=== PATIENT | female | born 1955 ===

== ENCOUNTER 2017-01-13 11:33 | Emergency (ER) | payer BC ==
[2017-01-13 11:43] VITALS: BMI 44.1
[2017-01-13 11:47] VITALS: TEMP 97.7
[2017-01-13] MEDS ORDERED: Sodium Chloride 0.9% 1,000 ML IV STA (11:59)
--- NOTE | 2017-01-13 12:07 | ED PDOC ---
Arrival/HPI - General Chief Complaint: Headache Time Seen by Provider: 01/13/17 11:44 Historian: Patient - History of Present Illness Narrative History of Present Illness (Text): 01/13/17 11:52 Sunshine Le is a 61 year old female, whose past medical history includes vertigo , asthma, anxiety, and depression, who presents to the emergency department complaining of constant left-sided headache with associated nausea and dizziness for one week. Patient states that she has had similar symptoms before but the duration was never this long. Patient describes her headache as a pressure to the left side of her head and her dizziness as a spinning sensation. Patient denies any recent travels, sick person contact, fever, abdominal pain, or any other complaint at this time. PMD: Dr. Owen Time/Duration: 1 week Symptom Onset: Gradual Symptom Course: Unchanged Quality: Pressure Severity Level: Mild Activities at Onset: Rest Context: Home Past Medical History - Provider Review Nursing Documentation Reviewed: Yes - Reproductive Menopause: Yes - Cardiac Hx Cardiac Disorders: No - Pulmonary Hx Respiratory Disorders: Yes Hx Asthma: Yes - Gastrointestinal Hx Gastrointestinal Disorders: Yes Hx Gastroesophageal Reflux: Yes - Psychiatric Hx Psychophysiologic Disorder: Yes Hx Anxiety: Yes Hx Substance Use: No - Surgical History Hx Section: Yes Hx Cholecystectomy: Yes - Anesthesia Hx Anesthesia: Yes Hx Anesthesia Reactions: No Hx Malignant Hyperthermia: No Family/Social History - Physician Review Nursing Documentation Reviewed: Yes Family/Social History: No Known Family HX Smoking Status: Never Smoked Hx Alcohol Use: No Hx Substance Use: No Allergies/Home Meds Allergies/Adverse Reactions: Allergies iodine Allergy (Verified 01/13/17 11:49) ANAPHYLAXIS Penicillins Allergy (Verified 01/13/17 11:49) ANAPHYLAXIS Home Medications: Home Meds Medication Instructions Recorded Confirmed Aspirin [Ecotrin] 81 mg PO DAILY 01/13/17 01/13/17 Montelukast [Singulair] 10 mg PO DAILY 01/13/17 01/13/17 Pantoprazole Sodium [Protonix] 40 mg PO DAILY 01/13/17 01/13/17 Review of Systems - Physician Review All systems were reviewed & negative as marked: Yes - Review of Systems Constitutional: absent: Fevers, Night Sweats Eyes: absent: Vision Changes ENT: absent: Hearing Changes Respiratory: absent: SOB, Cough Cardiovascular: absent: Chest Pain Gastrointestinal: Nausea. absent: Abdominal Pain Musculoskeletal: absent: Back Pain, Neck Pain Skin: absent: Rash, Pruritis Neurological: Headache, Dizziness Endocrine: absent: Diaphoresis Hemo/Lymphatic: absent: Easy Bleeding Psychiatric: absent: Depression Physical Exam - Physical Exam Narrative Physical Exam (Text): Constitutional: No acute distress. Head: Normocephalic. Atraumatic. Eyes: PERRL. ENT: Moist mucous membranes. Neck: Supple. Cardiovascular: Regular rate. Chest: No tenderness. Respiratory: Clear to auscultation bilaterally. GI: Soft. Nontender. Nondistended. Back: No CVA tenderness. Musculoskeletal: No tenderness or swelling of extremities. Skin: No rash. Neurologic: Alert, no focal deficit. Vital Signs Reviewed: Yes Vital Signs Temp Pulse Resp BP Pulse Ox 01/13/17 13:48 67 16 120/75 95 01/13/17 11:46 97.7 F 66 18 138/42 L 100 Temperature: Afebrile Blood Pressure: Hypotensive Pulse: Regular Respiratory Rate: Normal Appearance: Positive for: Well-Appearing, Non-Toxic, Comfortable Pain Distress: None Mental Status: Positive for: Alert and Oriented X 3 Medical Decision Making ED Course and Treatment: 01/13/17 11:52 Impression: 61 year old female complaining of left-sided headache with associated nausea, and dizziness for one week. Plan: -- Head CT w/o contrast -- Labs -- Tylenol, Toradol, Reglan, and IV Fluids -- Reassess and disposition Progress Notes: 01/13/17 13:[address] w/o contrast: Creator : Bruce Hwang MD FINDINGS: HEMORRHAGE:No intracranial hemorrhage. BRAIN:No mass effect or edema. No atrophy or chronic microvascular ischemic changes. VENTRICLES:Unremarkable. No hydrocephalus. CALVARIUM:Unremarkable. PARANASAL SINUSES:Unremarkable as visualized. No significant inflammatory changes. MASTOID AIR CELLS:Unremarkable as visualized. No inflammatory changes. OTHER FINDINGS:None. IMPRESSION: Normal CT of the Head. 01/13/17 14:02 Patient states she feels completely better. Will discharge home, continue ibuprofen/acetaminophen, reglan, f/u PMD, return to ER for worsening pain, fever , stiff neck, vomiting, or any other problem. - Lab Interpretations Lab Results: 01/13/17 12:15 01/13/17 12:15 Lab Results 01/13/17 12:15: Sodium 139, Potassium 4.5, Chloride 100, Carbon Dioxide 29, Anion Gap 15, BUN 13, Creatinine 0.7, Est GFR ( Amer) > 60, Est GFR (Non- Af Amer) > 60, Random Glucose 88, Calcium 9.4, Total Bilirubin 0.8, AST 31, ALT 44, Alkaline Phosphatase 84, Total Protein 8.0, Albumin 4.0, Globulin 4.0, Albumin/Globulin Ratio 1.0 L 01/13/17 12:15: WBC 9.3, RBC 5.38, Hgb 14.8, Hct 43.6, MCV 81.0, MCH 27.5, MCHC 33.9, RDW 13.5, Plt Count 251, MPV 9.5, Gran % 66.8, Lymph % (Auto) 25.0, Prowers % (Auto) 6.4 H, Eos % (Auto) 1.5, Baso % (Auto) 0.3, Gran # 6.23, Lymph # 2.3, Prowers # 0.6, Eos # 0.1, Baso # 0.03 - RAD Interpretation Radiology Orders: 01/13/17 11:59 HEAD W/O CONTRAST [CT] Stat - Medication Orders Current Medication Orders: Discontinued Medications Acetaminophen (Tylenol 325mg Tab) 975 mg PO STAT STA Stop: 01/13/17 12:00 Last Admin: 01/13/17 12:31 Dose: 650 mg Comments: pt requested 650mg, made aware Sodium Chloride (Sodium Chloride 0.9%) 1,000 mls @ 999 mls/hr IV .Q1H1M STA Stop: 01/13/17 12:59 Last Admin: 01/13/17 12:31 Dose: 999 mls/hr Ketorolac Tromethamine (Toradol) 30 mg IVP STAT STA Stop: 01/13/17 12:00 Last Admin: 01/13/17 12:31 Dose: 30 mg Lorazepam (Ativan) 1 mg IVP ONCE ONE PRN Reason: Protocol Stop: 01/13/17 12:40 Last Admin: 01/13/17 12:46 Dose: 1 mg Metoclopramide HCl (Reglan) 10 mg IVP STAT STA Stop: 01/13/17 12:00 Last Admin: 01/13/17 12:31 Dose: 10 mg - Scribe Statement The provider has reviewed the documentation as recorded by the Rossana Andres Provider Scribe Attestation: All medical record entries made by the Rossana were at my direction and personally dictated by me. I have reviewed the chart and agree that the record accurately reflects my personal performance of the history, physical exam, medical decision making, and the department course for this patient. I have also personally directed, reviewed, and agree with the discharge instructions and disposition. Disposition/Present on Arrival - Present on Arrival Any Indicators Present on Arrival: No History of DVT/PE: No History of Uncontrolled Diabetes: No Urinary Catheter: No History of Decub. Ulcer: No History Surgical Site Infection Following: None - Disposition Have Diagnosis and Disposition been Completed?: Yes Diagnosis: Migraine Disposition: HOME/ ROUTINE Disposition Time: 13:25 Patient Plan: Discharge Patient Problems: Current Active Problems Problem Status Onset Migraine Acute Condition: STABLE Discharge Instructions (ExitCare): Migraine Headache (ED) Prescriptions: Metoclopramide HCl [Reglan] 10 mg PO Q8H #6 tablet Referrals: Tiago Owen MD [Primary Care Provider] - Follow up with primary
[2017-01-13 12:21] LABS: ADD MANUAL DIFF? NO
[2017-01-13 12:24] LABS: BASO # 0.03 K/mm3 (0.0-2.0); BASO % 0.3 % (0.0-3.0); EOS # 0.1 (0.0-0.7); EOS % 1.5 % (1.5-5.0); GRAN # 6.23 (1.4-6.5); GRAN % 66.8 % (50.0-68.0); HEMATOCRIT 43.6 % (36.0-48.0); LYMPH # 2.3 (1.2-3.4); MEAN CORPUSCULAR HEMOGLOBIN 27.5 pg (25.0-35.0); MEAN CORPUSCULAR HGB CONC 33.9 g/dl (31.0-37.0); MEAN PLATELET VOLUME 9.5 fl (7.0-11.0); MONO # 0.6 (0.1-0.6); MONO % 6.4 % (1.0-6.0); PLATELET COUNT 251 10^3/uL (120.0-450.0); RED CELL DISTRIBUTION WIDTH 13.5 % (11.5-14.5); WHITE BLOOD COUNT 9.3 10^3/ul (4.5-11.0)
[2017-01-13 12:35] LABS: ALKALINE PHOSPHATASE 84 U/L (38-133); ALT/SGPT 44 U/L (7-56); AST/SGOT 31 U/L (15-39); BILIRUBIN,TOTAL 0.8 mg/dL (0.2-1.3); BLOOD UREA NITROGEN 13 mg/dL (7-21); CALCIUM 9.4 mg/dL (8.4-10.5); CARBON DIOXIDE 29 mmol/L (21-33); CHLORIDE 100 mmol/L (98-107); GFR AFRICAN-AMERICAN > 60; GLUCOSE,RANDOM 88 mg/dL (70-110); POTASSIUM 4.5 mmol/L (3.6-5.0); SODIUM 139 mmol/L (132-148)
--- NOTE | 2017-01-13 13:16 | CT ---
PROCEDURE: CT HEAD WITHOUT CONTRAST. HISTORY: headache, nausea COMPARISON: None available. TECHNIQUE: Axial computed tomography images were obtained through the head/brain without intravenous contrast. Radiation dose: Total exam DLP = 688 mGy-cm. This CT exam was performed using one or more of the following dose reduction techniques: Automated exposure control, adjustment of the mA and/or kV according to patient size, and/or use of iterative reconstruction technique. FINDINGS: HEMORRHAGE: No intracranial hemorrhage. BRAIN: No mass effect or edema. No atrophy or chronic microvascular ischemic changes. VENTRICLES: Unremarkable. No hydrocephalus. CALVARIUM: Unremarkable. PARANASAL SINUSES: Unremarkable as visualized. No significant inflammatory changes. MASTOID AIR CELLS: Unremarkable as visualized. No inflammatory changes. OTHER FINDINGS: None. IMPRESSION: Normal CT of the Head.
[2017-01-13 13:54] VITALS: BP 120/75; PULSE 67; RESP 16; O2SAT 95
== END 2017-01-13 14:00 | disposition home or self-care (01) ==
LOC: ED 11:33 → MERGE 11:33 → ED 14:00
DX: G43.909 Migraine, unspecified, not intractable, without status migrainosus (principal)
CPT/HCPCS: 70450; 80053; 85025; 96374; 96375; 99285; J1885; J2060; J2765; J7040

== ENCOUNTER 2017-01-17 10:40 | Emergency (ER) | payer BC ==
[2017-01-17 10:41] VITALS: BMI 44.1
[2017-01-17 11:11] VITALS: BP 134/82; PULSE 64; RESP 18; TEMP 97.8; O2SAT 100
--- NOTE | 2017-01-17 11:28 | ED PDOC ---
Arrival/HPI - General Chief Complaint: ENT Problem Time Seen by Provider: 01/17/17 11:18 Historian: Patient - History of Present Illness Narrative History of Present Illness (Text): 01/17/17 11:25 This 61 yo female presents to this ED c/o sore throat x 2 days. Patient stated she has been taking Azithromycin since yesterday without relieft of symptoms. Patient denies fever, ear pain, sob, cp, abdominal pain, rash, sick contact, or recent travel. Time/Duration: Other (2 days) Context: Home Past Medical History - Provider Review Nursing Documentation Reviewed: Yes - Reproductive Menopause: Yes - Cardiac Hx Cardiac Disorders: No - Pulmonary Hx Respiratory Disorders: Yes Hx Asthma: Yes - Neurological Hx Neurological Disorder: Yes Hx Dizziness: Yes - Gastrointestinal Hx Gastrointestinal Disorders: Yes Hx Gastroesophageal Reflux: Yes - Psychiatric Hx Psychophysiologic Disorder: Yes Hx Anxiety: Yes Hx Substance Use: No - Surgical History Hx Section: Yes Hx Cholecystectomy: Yes Other/Comment: cyst removed from L arm. - Anesthesia Hx Anesthesia: Yes Hx Anesthesia Reactions: No Hx Malignant Hyperthermia: No Family/Social History - Physician Review Nursing Documentation Reviewed: Yes Family/Social History: No Known Family HX Smoking Status: Never Smoked Hx Alcohol Use: No Hx Substance Use: No Allergies/Home Meds Allergies/Adverse Reactions: Allergies acetaminophen [From Percocet] Allergy (Verified 01/17/17 11:08) ANAPHYLAXIS hydrocodone [From Vicodin] Allergy (Verified 01/17/17 11:08) ANAPHYLAXIS iodine Allergy (Verified 01/13/17 11:49) ANAPHYLAXIS oxycodone [From Percocet] Allergy (Verified 01/17/17 11:08) ANAPHYLAXIS Penicillins Allergy (Verified 01/17/17 11:08) ANAPHYLAXIS seafood Allergy (Uncoded 01/17/17 11:08) ANAPHYLAXIS Home Medications: Home Meds Medication Instructions Recorded Confirmed Montelukast [Singulair] 10 mg PO DAILY 01/13/17 01/17/17 Pantoprazole Sodium [Protonix] 40 mg PO DAILY 01/13/17 01/17/17 Azithromycin [Zithromax] 250 mg PO DAILY 01/17/17 01/17/17 Naproxen [Naprosyn] 500 mg PO DAILY 01/17/17 01/17/17 Review of Systems - Review of Systems Constitutional: Normal. absent: Fatigue, Weight Change, Fevers Eyes: Normal ENT: Sore Throat. absent: Sinus Congestion Respiratory: Normal. absent: SOB, Cough Cardiovascular: Normal. absent: Chest Pain, Palpitations Gastrointestinal: Normal. absent: Abdominal Pain, Nausea, Vomiting Genitourinary Female: Normal. absent: Dysuria, Frequency, Hematuria Musculoskeletal: Normal Skin: Normal. absent: Rash Neurological: Normal. absent: Headache, Dizziness, Focal Weakness, Gait Changes , Speech Changes, Facial Droop, Disequilibrium Endocrine: Normal Hemo/Lymphatic: Normal Psychiatric: Normal Physical Exam Vital Signs Temp Pulse Resp BP Pulse Ox 01/17/17 11:11 97.8 F 64 18 134/82 100 Temperature: Afebrile Blood Pressure: Normal Pulse: Regular Respiratory Rate: Normal Appearance: Positive for: Well-Appearing, Non-Toxic, Comfortable Pain Distress: None Mental Status: Positive for: Alert and Oriented X 3 - Systems Exam Head: Present: Atraumatic, Normocephalic Pupils: Present: PERRL Extroacular Muscles: Present: EOMI Conjunctiva: Present: Normal Mouth: Present: Moist Mucous Membranes, Normal Lips, Normal Tounge. No: Drooling Pharnyx: No: ERYTHEMA, EXUDATE, TONSILS ENLARGED, Peritonsilar Swelling, Uvular Deviation, Muffled/Hoarse Voice, Strider, Soft Palate/Uvular Edema Nose (External): Present: Atraumatic Nose (Internal): Present: Normal Inspection Neck: Present: Normal Range of Motion, Trachea Midline. No: Meningeal Signs, Lymphadenopathy Respiratory/Chest: Present: Clear to Auscultation, Good Air Exchange. No: Respiratory Distress, Accessory Muscle Use, Wheezes, Retracting, Rhonchi Cardiovascular: Present: Regular Rate and Rhythm, Normal S1, S2. No: Murmurs Abdomen: Present: Normal Bowel Sounds. No: Tenderness, Distention, Peritoneal Signs Back: Present: Normal Inspection. No: CVA Tenderness Upper Extremity: Present: Normal Inspection. No: Cyanosis, Edema Lower Extremity: Present: Normal Inspection. No: Edema Neurological: Present: GCS=15, CN II-XII Intact, Speech Normal Skin: Present: Warm, Dry, Normal Color. No: Rashes Psychiatric: Present: Alert, Oriented x 3, Normal Insight, Normal Concentration Medical Decision Making ED Course and Treatment: 01/17/17 11:28 This 61 yo female with pmh asthma, presents to this ED c/o sore throat x 2 days. She denies castaneda, sob, cough, fever, rash or sick contact. Physical exam was unremarkable. Patient is requesting for Steroid injection for her sore throat, since she has had this in the past. She is aware of risk for AVN, glaucoma, or dm. Re-evaluation Time: 11:31 Reassessment Condition: Re-examined, Improved - Medication Orders Current Medication Orders: Discontinued Medications Dexamethasone (Decadron Inj) 10 mg IM STAT STA Stop: 01/17/17 11:37 Last Admin: 01/17/17 11:50 Dose: 10 mg Lidocaine HCl (Lidocaine 2% Viscous) 15 ml PO STAT STA Stop: 01/17/17 11:38 Last Admin: 01/17/17 11:50 Dose: 15 ml Disposition/Present on Arrival - Present on Arrival Any Indicators Present on Arrival: No History of DVT/PE: No History of Uncontrolled Diabetes: No Urinary Catheter: No History of Decub. Ulcer: No History Surgical Site Infection Following: None - Disposition Have Diagnosis and Disposition been Completed?: Yes Diagnosis: Pharyngitis Disposition: HOME/ ROUTINE Disposition Time: 12:04 Patient Plan: Discharge Condition: GOOD Discharge Instructions (ExitCare): Pharyngitis (ED) Additional Instructions: Call private doctor for follow up visit in 1-2 days. Take medication as instructed. Return to emergency if symptoms worsen. Continue with home Z- pack till finished Prescriptions: Lidocaine 2% Viscous 15 ml PO QID PRN #1 bottle PRN Reason: Sore Throat Promethazine DM [Dextromethorphan/Promethazine 15 MG/5 Ml-6.25] 5 ml PO Q4H PRN #120 ml PRN Reason: Cough And Congestion
== END 2017-01-17 12:16 | disposition home or self-care (01) ==
LOC: MERGE 10:40 → ED 10:40
DX: J02.9 Acute pharyngitis, unspecified (principal)
CPT/HCPCS: 96372; 99283; J1100

== ENCOUNTER 2017-05-30 13:20 | Emergency (ER) | payer BC ==
[2017-05-30 13:20] VITALS: BMI 44.9
[2017-05-30 13:38] VITALS: PULSE 64; RESP 16; TEMP 97.9; O2SAT 95
--- NOTE | 2017-05-30 13:44 | ED PDOC ---
Arrival/HPI - General Chief Complaint: Headache Time Seen by Provider: 05/30/17 13:42 Historian: Patient - History of Present Illness Narrative History of Present Illness (Text): 05/30/17 13:43 61 y/o female, pm including TIA, allergic to narcotics/tylenol/penicillin/ contrast, c/o headache x 3 weeks. Pt. has frontal headache with the nasal congestion x 3 weeks, not been sleeping well, no change in vision, no fever or chills, no night sweat, no rash, no numbness or tingling, no urinary symptoms, no other medical or psychological complaints. Past Medical History - Provider Review Nursing Documentation Reviewed: Yes - Past History Past History: Non-Contributing - Infectious Disease Hx of Infectious Diseases: None - Tetanus Immunization Tetanus Immunization: Unknown - Reproductive Menopause: Yes - Cardiac Hx Cardiac Disorders: No - Pulmonary Hx Respiratory Disorders: Yes Hx Asthma: Yes - Neurological Hx Neurological Disorder: Yes (headache) Hx Headaches: Yes - HEENT Hx HEENT Disorder: Yes (Rx glasses) - Renal Hx Renal Disorder: No - Endocrine/Metabolic Hx Endocrine Disorders: No - Hematological/Oncological Hx Blood Transfusions: No Hx Blood Transfusion Reaction: No - Integumentary Hx Dermatological Disorder: No - Musculoskeletal/Rheumatological Hx Musculoskeletal Disorders: Yes Hx Back Pain: Yes - Gastrointestinal Hx Gastrointestinal Disorders: Yes Hx Gastroesophageal Reflux: Yes - Genitourinary/Gynecological Hx Genitourinary Disorders: No - Psychiatric Hx Psychophysiologic Disorder: Yes Hx Anxiety: Yes Hx Substance Use: No - Surgical History Hx Section: Yes (x 1) Other/Comment: Hernia Repair. Cyst removal from L axilla - Anesthesia Hx Anesthesia: Yes - Suicidal Assessment Feels Threatened In Home Enviroment: No Family/Social History - Physician Review Nursing Documentation Reviewed: Yes Family/Social History: Unknown Family HX Smoking Status: Former Smoker Hx Alcohol Use: No Hx Substance Use: No Hx Substance Use Treatment: No Allergies/Home Meds Allergies/Adverse Reactions: Allergies hydrocodone Allergy (Severe, Verified 05/30/17 13:34) ANAPHYLAXIS Iodine and Iodide Containing Produc Allergy (Severe, Verified 05/30/17 13:34) ANAPHYLAXIS oxycodone Allergy (Severe, Verified 05/30/17 13:34) ANAPHYLAXIS Penicillins Allergy (Severe, Verified 05/30/17 13:34) ANAPHYLAXIS shellfish derived Allergy (Severe, Verified 05/30/17 13:34) ANAPHYLAXIS acetaminophen [From Percocet] Allergy (Verified 05/30/17 13:34) ANAPHYLAXIS iodine Allergy (Verified 05/30/17 13:34) ANAPHYLAXIS SEAFOOD Allergy (Severe, Uncoded 05/30/17 13:34) ANAPHYLAXIS seafood Allergy (Uncoded 05/30/17 13:34) ANAPHYLAXIS Home Medications: Home Meds Medication Instructions Recorded Confirmed Pantoprazole Sodium [Protonix] 40 mg PO DAILY 01/13/17 05/30/17 Review of Systems - Review of Systems Constitutional: absent: Fatigue, Fevers Eyes: absent: Vision Changes ENT: absent: Hearing Changes Respiratory: absent: SOB, Cough Cardiovascular: absent: Chest Pain Gastrointestinal: Nausea, Vomiting. absent: Abdominal Pain, Diarrhea Musculoskeletal: absent: Arthralgias, Back Pain Neurological: Headache. absent: Dizziness, Focal Weakness, Gait Changes, Speech Changes, Facial Droop, Disequilibrium Physical Exam Vital Signs Reviewed: Yes Vital Signs Temp Pulse Resp BP Pulse Ox 05/30/17 13:35 97.9 F 64 16 124/82 95 Temperature: Afebrile Blood Pressure: Normal Pulse: Regular Respiratory Rate: Normal Appearance: Positive for: Well-Appearing, Non-Toxic, Comfortable Pain Distress: Moderate Mental Status: Positive for: Alert and Oriented X 3 - Systems Exam Head: Present: Atraumatic, Normocephalic, Other (no temporal artery tenderness, no jaw clawdication, +ttp on the lt. maxillary sinus region with no facial or periorbital swelling. ). No: Tenderness, Contusion, Swelling, Ecchymosis, Abrasion, Laceration Pupils: Present: PERRL Extroacular Muscles: Present: EOMI Conjunctiva: Present: Normal Mouth: Present: Moist Mucous Membranes Neck: Present: Normal Range of Motion, Trachea Midline. No: Meningeal Signs, MIDLINE TENDERNESS, Paraspinal Tenderness, Lymphadenopathy Respiratory/Chest: Present: Clear to Auscultation, Good Air Exchange. No: Respiratory Distress, Accessory Muscle Use Cardiovascular: Present: Regular Rate and Rhythm, Normal S1, S2. No: Murmurs Abdomen: Present: Normal Bowel Sounds. No: Tenderness, Distention, Peritoneal Signs Back: Present: Normal Inspection Upper Extremity: Present: Normal Inspection. No: Cyanosis, Edema Lower Extremity: Present: Normal Inspection. No: Edema Neurological: Present: GCS=15, CN II-XII Intact, Speech Normal, Motor Func Grossly Intact, Gait Normal, Memory Normal Skin: Present: Warm, Dry, Normal Color. No: Rashes Psychiatric: Present: Alert, Oriented x 3, Normal Insight, Normal Concentration Medical Decision Making ED Course and Treatment: 05/30/17 13:54 -labs/ua -CT head (pt. feels anxious to go to the CT head, request medication, valium 5mg IV ordered) -IVF/reglan/benadryl/valium -observe and reassess 05/30/17 16:47 -Pt. is just now going for the CT, request valium again as it worn off already, another 5mg IV ordered. 05/30/17 17:36 -Labs are non-significant -CT head show no acute findings. -xithromax ordered -Pt. feels completely relief, no focal neurological deficits, will discharge home. -case discussed with Dr. Marks, he agreed on the diagnosis/treatment and discharge plan -Discharge home with zithromax, claritin d24, flonase, motrin, stay hydrated, bed rest, follow up with your own pmd and ENT/neurologist within 2 days, return to the ER for any new or worsening signs or symptoms. - Lab Interpretations Lab Results: 05/30/17 14:30 05/30/17 14:30 Lab Results 05/30/17 14:30: WBC 6.5 D, RBC 5.32, Hgb 14.4, Hct 42.9, MCV 80.6, MCH 27.1, MCHC 33.6, RDW 13.3, Plt Count 219, MPV 9.6, Gran % 52.7, Lymph % (Auto) 37.1 H , [place] % (Auto) 7.2 H, Eos % (Auto) 2.8, Baso % (Auto) 0.2, Gran # 3.43, Lymph # 2.4, [place] # 0.5, Eos # 0.2, Baso # 0.01 05/30/17 14:30: Sodium 142, Potassium 4.4, Chloride 103, Carbon Dioxide 30, Anion Gap 13, BUN 12, Creatinine 0.7, Est GFR ( Amer) > 60, Est GFR (Non- Af Amer) > 60, Random Glucose 93, Calcium 9.4, Magnesium 2.0, Total Bilirubin 0.5, AST 25, ALT 36, Alkaline Phosphatase 85, Total Protein 7.0, Albumin 3.9, Globulin 3.1, Albumin/Globulin Ratio 1.3 I have reviewed the lab results: Yes - RAD Interpretation Radiology Orders: 05/30/17 13:46 HEAD W/O CONTRAST [CT] Stat PROCEDURE: CT HEAD WITHOUT CONTRAST. HISTORY: headache x 3 weeks COMPARISON: None available. TECHNIQUE: Axial computed tomography images were obtained through the head/brain without intravenous contrast. Radiation dose: Total exam DLP = 775.01 mGy-cm. This CT exam was performed using one or more of the following dose reduction techniques: Automated exposure control, adjustment of the mA and/or kV according to patient size, and/or use of iterative reconstruction technique. FINDINGS: HEMORRHAGE: Please note that the examination is limited due to patient motion artifact. The posterior fossa is particularly obscured. No intracranial hemorrhage identified. BRAIN: No mass effect or edema. No atrophy or chronic microvascular ischemic changes. VENTRICLES: Unremarkable. No hydrocephalus. CALVARIUM: Unremarkable. PARANASAL SINUSES: Unremarkable as visualized. No significant inflammatory changes. MASTOID AIR CELLS: Unremarkable as visualized. No inflammatory changes. OTHER FINDINGS: None. IMPRESSION: Limited examination due to patient motion. No intracranial hemorrhage, mass or evidence of acute infarct. Admissions Officer: Radiologist - Medication Orders Current Medication Orders: Discontinued Medications Diazepam (Valium) 5 mg IVP ONCE ONE PRN Reason: Protocol Stop: 05/30/17 13:47 Last Admin: 05/30/17 14:14 Dose: 5 mg IVP Administration Document 05/30/17 14:14 OCS (Rec: 05/30/17 14:14 [place] [facility] [id number] Charges for Administration # of IVP Administrations 1 Diazepam (Valium) 5 mg IVP ONCE ONE PRN Reason: Protocol Stop: 05/30/17 16:47 Last Admin: 05/30/17 16:52 Dose: 5 mg IVP Administration Document 05/30/17 16:52 HI (Rec: 05/30/17 16:52 [place] [facility] [id number][place] Charges for Administration # of IVP Administrations 1 Diphenhydramine HCl (Benadryl) 50 mg IVP STAT STA Stop: 05/30/17 13:47 Last Admin: 05/30/17 14:14 Dose: 50 mg IVP Administration Document 05/30/17 14:14 OCS (Rec: 05/30/17 14:14 O[place] [facility] [id number][place] Charges for Administration # of IVP Administrations 1 Sodium Chloride (Sodium Chloride 0.9%) 1,000 mls @ 999 mls/hr IV .Q1H1M STA Stop: 05/30/17 14:46 Last Admin: 05/30/17 14:15 Dose: 999 mls/hr eMAR Start Stop Document 05/30/17 14:15 OCS (Rec: 05/30/17 14:15 O[place] [facility] [id number][place] Intravenous Solution Start Date 05/30/17 Start Time 14:15 Metoclopramide HCl (Reglan) 10 mg IVP STAT STA Stop: 05/30/17 13:47 Last Admin: 05/30/17 14:14 Dose: 10 mg IVP Administration Document 05/30/17 14:14 OCS (Rec: 05/30/17 14:14 O[place] [facility] [id number][place] Charges for Administration # of IVP Administrations 1 - PA / STORE GROUP MANAGER / Resident Statement / has reviewed & agrees with the documentation as recorded. Disposition/Present on Arrival - Present on Arrival Any Indicators Present on Arrival: No History of DVT/PE: No History of Uncontrolled Diabetes: No Urinary Catheter: No History of Decub. Ulcer: No History Surgical Site Infection Following: None - Disposition Have Diagnosis and Disposition been Completed?: Yes Diagnosis: Migraine, Sinusitis Disposition: HOME/ ROUTINE Disposition Time: 17:38 Patient Plan: Discharge Patient Problems: Current Active Problems Problem Status Onset Migraine Acute Sinusitis Acute Condition: IMPROVED Additional Instructions: -Discharge home with zithromax, claritin d24, flonase, celebrex, stay hydrated, bed rest, follow up with your own pmd and ENT/neurologist within 2 days, return to the ER for any new or worsening signs or symptoms. Prescriptions: Azithromycin [Zithromax] 250 mg PO DAILY #4 tab Celecoxib [CeleBREX] 200 mg PO DAILY PRN #10 cap PRN Reason: Other Fluticasone Furoate [Flonase Sensimist] 1 spray NS DAILY #1 bot Loratadine/Pseudoephedrine [Claritin-D 24 Hour Tablet] 1 each PO DAILY #5 tab.er.24h Referrals: Tiago Owen MD [Primary Care Provider] - Follow up with primary Forms: [facility] (Romanian)
[2017-05-30] MEDS ORDERED: DiphenhydrAMINE 50 mg/ml Inj IVP STA (13:46)
[2017-05-30] MEDS ORDERED: Sodium Chloride 0.9% 1,000 ML IV STA (13:46)
[2017-05-30] MEDS ORDERED: diaZEpam 10 mg/2 ml Inj IVP ONE ×2 (13:46→16:46)
[2017-05-30 14:42] LABS: BASO # 0.01 K/mm3 (0.0-2.0); BASO % 0.2 % (0.0-3.0); EOS # 0.2 (0.0-0.7); EOS % 2.8 % (1.5-5.0); GRAN # 3.43 (1.4-6.5); GRAN % 52.7 % (50.0-68.0); HEMATOCRIT 42.9 % (36.0-48.0); LYMPH # 2.4 (1.2-3.4); LYMPH % 37.1 % (22.0-35.0); MEAN CELL VOLUME 80.6 fl (80.0-105.0); MEAN CORPUSCULAR HEMOGLOBIN 27.1 pg (25.0-35.0); MEAN CORPUSCULAR HGB CONC 33.6 g/dl (31.0-37.0); MEAN PLATELET VOLUME 9.6 fl (7.0-11.0); MONO # 0.5 (0.1-0.6); MONO % 7.2 % (1.0-6.0); RED CELL DISTRIBUTION WIDTH 13.3 % (11.5-14.5); WHITE BLOOD COUNT 6.5 10^3/ul (4.5-11.0)
[2017-05-30 14:52] LABS: ALB/GLOB RATIO 1.3 (1.1-1.8); ALKALINE PHOSPHATASE 85 U/L (38-126); ALT/SGPT 36 U/L (7-56); AST/SGOT 25 U/L (14-36); BILIRUBIN,TOTAL 0.5 mg/dL (0.2-1.3); BLOOD UREA NITROGEN 12 mg/dL (7-21); CALCIUM 9.4 mg/dL (8.4-10.5); CARBON DIOXIDE 30 mmol/L (21-33); CHLORIDE 103 mmol/L (98-107); GFR AFRICAN-AMERICAN > 60; GLUCOSE,RANDOM 93 mg/dL (70-110); POTASSIUM 4.4 mmol/L (3.6-5.0); SODIUM 142 mmol/L (132-148)
--- NOTE | 2017-05-30 17:13 | CT ---
PROCEDURE: CT HEAD WITHOUT CONTRAST. HISTORY: headache x 3 weeks COMPARISON: None available. TECHNIQUE: Axial computed tomography images were obtained through the head/brain without intravenous contrast. Radiation dose: Total exam DLP = 775.01 mGy-cm. This CT exam was performed using one or more of the following dose reduction techniques: Automated exposure control, adjustment of the mA and/or kV according to patient size, and/or use of iterative reconstruction technique. FINDINGS: HEMORRHAGE: Please note that the examination is limited due to patient motion artifact. The posterior fossa is particularly obscured. No intracranial hemorrhage identified. BRAIN: No mass effect or edema. No atrophy or chronic microvascular ischemic changes. VENTRICLES: Unremarkable. No hydrocephalus. CALVARIUM: Unremarkable. PARANASAL SINUSES: Unremarkable as visualized. No significant inflammatory changes. MASTOID AIR CELLS: Unremarkable as visualized. No inflammatory changes. OTHER FINDINGS: None. IMPRESSION: Limited examination due to patient motion. No intracranial hemorrhage, mass or evidence of acute infarct.
[2017-05-30 18:11] VITALS: BP 124/80
== END 2017-05-30 18:16 | disposition home or self-care (01) ==
LOC: ED 13:20
DX: G43.909 Migraine, unspecified, not intractable, without status migrainosus (principal); J32.9 Chronic sinusitis, unspecified
CPT/HCPCS: 70450; 80053; 83735; 85025; 96374; 96375; 96376; 99285; J1200; J1885; J2765; J3360; J7040

== ENCOUNTER 2017-08-29 11:25 | Observation (INO) | payer BC ==
[2017-08-29 11:29] VITALS: BMI 45.2
--- NOTE | 2017-08-29 12:22 | ED PDOC ---
Arrival/HPI - General Chief Complaint: Chest Pain Time Seen by Provider: 08/29/17 12:11 Historian: Patient - History of Present Illness Narrative History of Present Illness (Text): 08/29/17 12:10 Sunshine Le is a 62 year old female, whose past medical history includes asthma , who presents to the emergency department complaining of intermediate chest discomfort when taking deep breaths. Patient reports this began 1 week ago and decided to go to [facility] where they evaluated her and put her on antibiotics due to a fever of 101 degrees F. Patient notes she has been taking her antibiotics for three days but there has been no significant change. She also reports feeling dizziness and fatigue, along with upper back pain. She notes taking Tylenol for pain. Patient denies headache, chills cough, nausea, vomiting , diarrhea, diaphoresis, jaw pain, back pain, lower extremity pain/swelling, recent travels, or other complaints. PMD: None Time/Duration: 1 week Symptom Onset: Gradual Symptom Course: Unchanged Severity Level: 4, Mild Context: Home Past Medical History - Provider Review Nursing Documentation Reviewed: Yes - Travel History Have you recently traveled outside [place] w/in the past 3 mons?: No - Past History Past History: Non-Contributing - Infectious Disease Hx of Infectious Diseases: None - Tetanus Immunization Tetanus Immunization: Unknown - Reproductive Menopause: Yes - Cardiac Hx Cardiac Disorders: No - Pulmonary Hx Respiratory Disorders: Yes Hx Asthma: Yes - Neurological Hx Neurological Disorder: Yes (headache) Hx Headaches: Yes - HEENT Hx HEENT Disorder: Yes (Rx glasses) - Renal Hx Renal Disorder: No - Endocrine/Metabolic Hx Endocrine Disorders: No - Hematological/Oncological Hx Blood Transfusions: No Hx Blood Transfusion Reaction: No - Integumentary Hx Dermatological Disorder: No - Musculoskeletal/Rheumatological Hx Musculoskeletal Disorders: Yes Hx Back Pain: Yes - Gastrointestinal Hx Gastrointestinal Disorders: Yes Hx Gastroesophageal Reflux: Yes - Genitourinary/Gynecological Hx Genitourinary Disorders: No - Psychiatric Hx Psychophysiologic Disorder: Yes Hx Anxiety: Yes Hx Substance Use: No - Surgical History Hx Section: Yes (x 1) Other/Comment: Hernia Repair. Cyst removal from L axilla - Anesthesia Hx Anesthesia: Yes Hx Anesthesia Reactions: No Hx Malignant Hyperthermia: No - Suicidal Assessment Feels Threatened In Home Enviroment: No Family/Social History - Physician Review Nursing Documentation Reviewed: Yes Family/Social History: Unknown Family HX Smoking Status: Former Smoker Hx Alcohol Use: No Hx Substance Use: No Hx Substance Use Treatment: No Allergies/Home Meds Allergies/Adverse Reactions: Allergies hydrocodone Allergy (Severe, Verified 05/30/17 13:34) ANAPHYLAXIS Iodine and Iodide Containing Produc Allergy (Severe, Verified 05/30/17 13:34) ANAPHYLAXIS oxycodone Allergy (Severe, Verified 05/30/17 13:34) ANAPHYLAXIS Penicillins Allergy (Severe, Verified 05/30/17 13:34) ANAPHYLAXIS shellfish derived Allergy (Severe, Verified 05/30/17 13:34) ANAPHYLAXIS acetaminophen [From Percocet] Allergy (Verified 05/30/17 13:34) ANAPHYLAXIS iodine Allergy (Verified 05/30/17 13:34) ANAPHYLAXIS SEAFOOD Allergy (Severe, Uncoded 05/30/17 13:34) ANAPHYLAXIS seafood Allergy (Uncoded 05/30/17 13:34) ANAPHYLAXIS Home Medications: Home Meds Medication Instructions Recorded Confirmed Pantoprazole Sodium [Protonix] 40 mg PO DAILY 01/13/17 05/30/17 Review of Systems - Review of Systems Constitutional: Fatigue, Fevers Respiratory: SOB. absent: Cough Cardiovascular: Other (chest discomfort). absent: Chest Pain Gastrointestinal: absent: Abdominal Pain, Stool Changes, Vomiting Musculoskeletal: Back Pain Skin: absent: Rash Neurological: Dizziness. absent: Headache Endocrine: absent: Diaphoresis Hemo/Lymphatic: absent: Easy Bleeding Physical Exam Vital Signs Reviewed: Yes (WNL) Vital Signs Pulse Resp BP Pulse Ox 08/29/17 13:39 62 16 129/68 96 Temperature: Afebrile Blood Pressure: Normal Pulse: Regular Respiratory Rate: Normal Appearance: Positive for: Well-Appearing, Non-Toxic, Other (mildly uncomfortable , alert/awake, GCS = 15, oriented x 3, NAD, cooperative) Pain Distress: None Mental Status: Positive for: Alert and Oriented X 3 - Systems Exam Head: Present: Atraumatic, Normocephalic Pupils: Present: PERRL, Other (no nystagmus, no photophobia, sclera anicteric) Extroacular Muscles: Present: EOMI Conjunctiva: Present: Normal Ears: Present: Normal Mouth: Present: Moist Mucous Membranes, Normal Teeth, Other (uvula/tongue are midline, no exudate/lesions, no drooling/stridor) Pharnyx: Present: Normal Nose (External): Present: Atraumatic Neck: Present: Normal Range of Motion, Trachea Midline, Other (no nuchal rigidity, no meningeal signs, no step off, no gross deformities). No: MIDLINE TENDERNESS Respiratory/Chest: Present: Clear to Auscultation, Good Air Exchange, Tender to Palpation (reproductive tenderness ). No: Respiratory Distress, Accessory Muscle Use Cardiovascular: Present: Regular Rate and Rhythm, Normal S1, S2. No: Murmurs Abdomen: Present: Normal Bowel Sounds, Other (well nourished female, no focal tenderness, no bennett's sign, no mcburney's point tenderness, no masses/rebound/ guarding/rigidity). No: Tenderness, Distention, Peritoneal Signs Back: Present: Normal Inspection. No: Midline Tenderness, Pain with Leg Raise Upper Extremity: Present: Normal Inspection, Normal ROM, NORMAL PULSES, Neurovascularly Intact, Capillary Refill < 2s. No: Cyanosis, Edema, Tenderness , Swelling, Deformity Lower Extremity: Present: Normal Inspection, NORMAL PULSES, Normal ROM, Neurovascularly Intact, Capillary Refill < 2 s. No: Edema, Cyanosis, Tenderness , Swelling, Erythema Neurological: Present: GCS=15, CN II-XII Intact, Speech Normal Skin: Present: Warm, Dry, Normal Color. No: Rashes Psychiatric: Present: Alert, Oriented x 3, Normal Insight, Normal Concentration Medical Decision Making ED Course and Treatment: 08/29/17 Impression: 62 year old female with intermediate chest discomfort. I have considered all Differential Diagnosis regarding pt's chief medical complaints/clinical findings included but are not limited to: typical chest pain, r/o PNA, possible bronchitis, unlikely PE Plan: -- EKG -- Chest X-ray -- Labs -- Urinalysis -- Ecotrin and Toradol -- Reassess and disposition Progress Notes: 08/29/17 14:52 pt is feeling improved pt states chest pain is improved post toradol, currently 0-1/10 pain pt is made aware of her medical results, due to left chest pain, will recommend admission/Observation for chest pain r/o acs, possible bronchitis pt agrees with my recommendation pt currently does not have PCP, will consult medical service for admission 2:52pm - i spoke to Dr Jihan Valentino, epic beacon analyst PCP, made aware, agrees with admission/ obs, would like to consult Dr Chance Willis (cards) 08/29/17 14:58 Re-evaluation Time: 14:46 Reassessment Condition: Improved - Lab Interpretations Lab Results: 08/29/17 12:30 08/29/17 12:30 Lab Results 08/29/17 13:00: Influenza Typ A,B (EIA) Negative for flu a/b 08/29/17 12:30: Sodium 142, Potassium 4.6, Chloride 103, Carbon Dioxide 32, Anion Gap 10, BUN 11, Creatinine 0.6 L, Est GFR ( Amer) > 60, Est GFR ( Non-Af Amer) > 60, Random Glucose 105, Calcium 9.7, Magnesium 2.0, Total Bilirubin 0.5, AST 29, ALT 39, Alkaline Phosphatase 83, Lactate Dehydrogenase 508, Total Creatine Kinase 64, Troponin I < 0.01, Total Protein 7.3, Albumin 4.1 , Globulin 3.2, Albumin/Globulin Ratio 1.3 08/29/17 12:30: WBC 7.0, RBC 5.42, Hgb 14.7, Hct 44.4, MCV 81.9, MCH 27.1, MCHC 33.1, RDW 14.1, Plt Count 211, MPV 9.9, Gran % 53.1, Lymph % (Auto) 34.9, [place] % (Auto) 9.4 H, Eos % (Auto) 2.3, Baso % (Auto) 0.3, Gran # 3.74, Lymph # 2.5, [place] # 0.7 H, Eos # 0.2, Baso # 0.02 WNL I have reviewed the lab results: Yes Interpretation: All labs normal - RAD Interpretation Radiology Orders: 08/29/17 12:11 CHEST TWO VIEWS (PA/LAT) [RAD] Stat TECHNIQUE: Chest PA and lateral FINDINGS: LINES AND TUBES: None. LUNG AND PLEURA: The lungs are well inflated. There is linear scarring in the right lower lobe. No focal consolidation. HEART AND MEDIASTINUM: The heart is not enlarged. The hilar and mediastinal contours are within normal limits. SKELETAL STRUCTURES: The bony structures are within normal limits for the patient's age. VISUALIZED UPPER ABDOMEN: Normal. OTHER FINDINGS: None. IMPRESSION: No active pulmonary disease. Captain Assistant: Radiologist - EKG Interpretation EKG Interpretation (Text): 08/29/17 EKG: Ordered, reviewed, and independently interpreted the EKG. Rate : 80 BPM Rhythm : NSR Interpretation : LAD. No ectopy. No ST-segment elevations or depressions, no T- wave inversions, normal intervals. Borderline EKG. unchanged compare with old ekg 03/201608/29/17 14:47 Interpreted by ED Physician: Yes Type: 12 lead EKG - Medication Orders Current Medication Orders: Discontinued Medications Aspirin (Ecotrin) 81 mg PO STAT STA Stop: 08/29/17 12:12 Last Admin: 08/29/17 12:42 Dose: 81 mg Ketorolac Tromethamine (Toradol) 30 mg IVP STAT STA Stop: 08/29/17 12:14 Last Admin: 08/29/17 12:42 Dose: 30 mg MAR Pain Assessment Document 08/29/17 12:42 [place] (Rec: 08/29/17 12:43 [facility] [id number] Pain Reassessment Is this a pain reassessment? Yes Sleep Is patient sleeping during reassessment? No Presence of Pain Presence of Pain Yes Pain Scale Used Pain Scale Used Numeric Description Intensity of Pain at present 5 IVP Administration Document 08/29/17 12:42 [place] (Rec: 08/29/17 12:43 [place] [facility] [id number] Charges for Administration # of IVP Administrations 1 - Scribe Statement The provider has reviewed the documentation as recorded by the Rossana Lawson Provider Scribe Attestation: All medical record entries made by the Scribe were at my direction and personally dictated by me. I have reviewed the chart and agree that the record accurately reflects my personal performance of the history, physical exam, medical decision making, and the department course for this patient. I have also personally directed, reviewed, and agree with the discharge instructions and disposition. Disposition/Present on Arrival - Present on Arrival Any Indicators Present on Arrival: No History of DVT/PE: No History of Uncontrolled Diabetes: No Urinary Catheter: No History of Decub. Ulcer: No History Surgical Site Infection Following: None - Disposition Have Diagnosis and Disposition been Completed?: Yes Diagnosis: Chest pain with low risk for cardiac etiology, Bronchitis Disposition: HOSPITALIZED Disposition Time: 14:50 Patient Plan: Admission, Observation Condition: STABLE Discharge Instructions (ExitCare): Chest Pain (ED) Forms: [employer] (Lithuanian)
[2017-08-29 13:12] LABS: BASO # 0.02 K/mm3 (0.0-2.0); BASO % 0.3 % (0.0-3.0); EOS # 0.2 (0.0-0.7); EOS % 2.3 % (1.5-5.0); GRAN # 3.74 (1.4-6.5); GRAN % 53.1 % (50.0-68.0); HEMOGLOBIN 14.7 g/dL (12.0-16.0); LYMPH # 2.5 (1.2-3.4); LYMPH % 34.9 % (22.0-35.0); MEAN CELL VOLUME 81.9 fl (80.0-105.0); MEAN CORPUSCULAR HEMOGLOBIN 27.1 pg (25.0-35.0); MEAN CORPUSCULAR HGB CONC 33.1 g/dl (31.0-37.0); MEAN PLATELET VOLUME 9.9 fl (7.0-11.0); MONO # 0.7 (0.1-0.6); MONO % 9.4 % (1.0-6.0); RBC 5.42 10^6/uL (3.5-6.1); RED CELL DISTRIBUTION WIDTH 14.1 % (11.5-14.5)
[2017-08-29 13:19] LABS: ALB/GLOB RATIO 1.3 (1.1-1.8); ALBUMIN 4.1 g/dL (3.0-4.8); ALT/SGPT 39 U/L (7-56); AST/SGOT 29 U/L (14-36); BLOOD UREA NITROGEN 11 mg/dL (7-21); CALCIUM 9.7 mg/dL (8.4-10.5); GFR AFRICAN-AMERICAN > 60; GFR NON-AFRICAN AMERICAN > 60
[2017-08-29 13:30] LABS: TROPONIN I < 0.01 ng/mL
--- NOTE | 2017-08-29 13:48 | RAD ---
HISTORY: COMPARISON: 04/26/2016 TECHNIQUE: Chest PA and lateral FINDINGS: LINES AND TUBES: None. LUNG AND PLEURA: The lungs are well inflated. There is linear scarring in the right lower lobe. No focal consolidation. HEART AND MEDIASTINUM: The heart is not enlarged. The hilar and mediastinal contours are within normal limits. SKELETAL STRUCTURES: The bony structures are within normal limits for the patient's age. VISUALIZED UPPER ABDOMEN: Normal. OTHER FINDINGS: None. IMPRESSION: No active pulmonary disease.
--- NOTE | 2017-08-29 17:38 | CARD ---
APPROVED REPORT EKG Measurement Heart [id number] <Conclusion> Normal sinus rhythm Normal ECG
--- NOTE | 2017-08-30 | HP ---
HISTORY OF PRESENT ILLNESS: I was called on to the Emergency Room to see her. She is a 62-year-old female who presents with intermediate chest discomfort when taking deep breaths. It began about a week ago and she was in [place]. She was on antibiotics with 101 fever and feeling as she is having chest pain. I will put her on for observation. She has a history of menopause, asthma, headaches, she wears glasses, back pains, gastroesophageal reflux, anxiety disorder, , hernia repair, cyst removed from the left axilla. FAMILY HISTORY: No known family history. SOCIAL HISTORY: Former smoker, no alcohol, no drugs. ALLERGIES: ALLERGIC TO HYDROCODONE, IODINE, OXYCODONE, PENICILLIN, SHELLFISH, ACETAMINOPHEN, TYLENOL, IODINE, SEAD FOOD, SEA FOOD ALLERGY. MEDICATIONS: She takes at home is Protonix, Zithromax, Flonase, Claritin. REVIEW OF SYSTEMS: No acute vision or hearing changes. She is tired with fevers. She has shortness of breath. No cough. She has chest discomfort and pain. No abdominal pain or any stool changes. No nausea, vomiting, constipation, or diarrhea. Back pain is chronic. No apparent skin rashes or ulcers. She has been little bit dizzy but no headache. No sweating. No easy bleeding. PHYSICAL EXAMINATION VITAL SIGNS: She has 62 pulse, 16 respiratory rate, 129/68 blood pressure, 96% O2 sat with 99 temperature. GENERAL: Well appearing, nontoxic at this time. Alert and oriented x3. HEENT: Head is atraumatic and normocephalic. Pupils are equal and reactive to light. Extraocular muscles are intact. Throat is mildly red. NECK: Supple. CHEST: She has coughing and some congestion. No palpitations chest pain. SKIN: Absence of rash. There is dizziness. No headache. LUNGS: Clear to auscultation bilaterally. Throat is red. HEART: Regular rate. Normal S1, S2. ABDOMEN: Soft, nontender. Positive bowel sounds. No guarding. No rebound. EXTREMITIES: Have no edema. GCS is 15. Cranial nerves II through XII grossly intact. SKIN: Warm and dry. Thyroid is midline. No palpable appreciable lymphadenopathy. LABORATORY DATA: She has 142 sodium, potassium 4.6, BUN 11, creatinine 0.64. GFR is greater than 62. Sugar is 105. Calcium is 9.7. Magnesium is 2. Total bilirubin is 0.5. AST is 29, ALT is 39, alk phos is 83. Lactate dehydrogenase is 508. Total creatine kinase is 64. Troponin I is less than 0.01. Total protein is 7.3. Albumin is 4.1. Globulin is 3.2. White count 7, hemoglobin 14.7, hematocrit 44.4, platelets of 211. Negative for flu. Chest x-ray is clear. She will have a consult for cardiopulmonary, checking troponins, she will be on azithromycin, Protonix, Flonase and Ecotrin. We will check her labs tomorrowand hopefully she will be on observation and we will get her out tomorrow if her troponin's are negative. IMPRESSION: He is here for shortness of breath and chest pain. Renny Valentino DO MTDD
[2017-08-30 00:53] VITALS: RESP 18
[2017-08-30] MEDS ORDERED: Pneumococcal 23-Valent Vaccine IM ONE (00:53)
[2017-08-30 07:24] LABS: HEMOGLOBIN 15.2 g/dL (12.0-16.0); MEAN CELL VOLUME 80.8 fl (80.0-105.0); MEAN CORPUSCULAR HEMOGLOBIN 27.3 pg (25.0-35.0); MEAN CORPUSCULAR HGB CONC 33.9 g/dl (31.0-37.0); MEAN PLATELET VOLUME 9.7 fl (7.0-11.0); RBC 5.56 10^6/uL (3.5-6.1); WHITE BLOOD COUNT 7.5 10^3/ul (4.5-11.0)
[2017-08-30] MEDS ORDERED: Albuterol-Ipratrop 3 mg / 0.5 (3 ml) UD IH PRN (07:27)
[2017-08-30 07:36] LABS: ALB/GLOB RATIO 1.1 (1.1-1.8); ALT/SGPT 39 U/L (7-56); AST/SGOT 26 U/L (14-36); BLOOD UREA NITROGEN 11 mg/dL (7-21); CALCIUM 9.4 mg/dL (8.4-10.5); GFR AFRICAN-AMERICAN > 60; GFR NON-AFRICAN AMERICAN > 60
[2017-08-30] MEDS ORDERED: Budesonide 0.5 mg/2 ml Inhal Susp UD IH SCH (08:00)
[2017-08-30] MEDS: Albuterol-Ipratrop 3 mg / 0.5 (3 ml) UD IH SCH ×2 (08:01→13:45)
--- NOTE | 2017-08-30 08:13 | CON ---
DATE: 08/30/2017 PULMONARY CONSULTATION REASON FOR CONSULTATION: Asthma. REFERRING PHYSICIAN: Renny Valentino DO HISTORY OF PRESENT ILLNESS: The patient is a 62-year-old female, with past medical history significant for asthma and obesity, who presents to with main complaint of intermittent left-sided chest pain for the past week. The patient also complains of mild dyspnea on exertion for the past week. The patient is not short of breath at rest. The patient also denies cough or sputum production. There is no history of coughing up of blood. The patient does state to increasing chest discomfort when taking deep breaths or twisting. The patient did seek medical attention in a hospital --in [place]-- approximately 1 week ago. At that time, the patient stated to having fevers and was placed on antibiotics. The fevers have now resolved. No history of chills or infectious exposure. No history of night sweats, weight loss or appetite change prior to the above events. No history of leg or calf pains. No history of syncope or diaphoresis. No history of trauma. The patient has had recent travel - back and forth to [place]. REVIEW OF SYSTEMS: No history of nausea, vomiting, or diarrhea. No acute urinary symptoms. No new neurologic complaints. Rest of the review of systems is negative. ALLERGIES: HYDROCODONE, IODINE, OXYCODONE, PENICILLIN AND SEAFOOD. SOCIAL HISTORY: Negative for tobacco and negative for alcohol. FAMILY HISTORY: No inheritable diseases. MEDICATIONS: Home medications include Mucinex, Sonia, Protonix, Flonase, Celebrex, and Zithromax. PHYSICAL EXAMINATION: GENERAL: The patient appears comfortable this morning. She is not short of breath at rest. She does state to feeling much better. VITAL SIGNS: Temperature is 98.2, pulse is 61, respirations are 18, and blood pressure is 140/79. Oxygen saturation on room air is 95% to 98%. HEENT: Normocephalic and atraumatic. NECK: No JVD. CARDIOVASCULAR: Positive S1 and S2. No S3, gallop. LUNGS: Decreased breath sounds at the bases. Minimal rhonchi. No wheezing. EXTREMITIES: No clubbing, cyanosis or edema. Calves are nontender to palpation. GASTROINTESTINAL: Abdomen is soft, nontender and nondistended. Bowel sounds are positive. SKIN: No acute rash. NEUROLOGIC: Exam is limited at the present time. PERTINENT LABORATORY DATA: Chest x-ray was done yesterday and reviewed. There is a linear scar noted at the right lower lobe. There is no focal consolidation. There is no active pulmonary disease. CBC: White count of 7.0, hemoglobin of 14.7, hematocrit of 44.0, and platelets of 211,000K. Complete metabolic profile: Creatinine of 0.6. Rest of the metabolic profiles are within normal limits. IMPRESSION 1. Mild acute bronchitis. 2. Asthma. 3. Intermittent left chest pain. 4. Obesity. PLAN: The patient presents to with main complaint of intermittent left-sided chest discomfort/pain for the past week. She also states to some mild dyspnea on exertion for the past week. Apparently, the patient was recently in [place], and did go to an Emergency Room down there. She was discharged on antibiotic therapy. Her fevers have now resolved. At this point in time, the patient is feeling much better overall, with a significant decrease in her left-sided chest pain/discomfort. However, given her above history of travel and obesity, I will order a D-dimer level to be done this morning. On physical exam, there is only minimal bronchospasm noted. There is no significant alveolar-arterial gradient. Oxygen saturation on room air is 95% to 98%. I will start the patient on nebulizer treatments and inhaled steroids. The patient has also been placed on nasal steroids and antibiotic therapy. Again, there are no temperatures noted. There is no leukocytosis. Cardiology evaluation with Dr. Dugan has also been ordered. Again, the patient does feel much better this morning and is clinically improved. Additional pulmonary intervention will be based on the above results, as well as the clinical status of the patient. I will discuss the above with Dr. Valentino later this morning. Thank you very much for this pulmonary consultation. Vernon Wells MD BERT
[2017-08-30] MEDS ORDERED: Pantoprazole 40 mg EC Tab PO SCH (10:00)
[2017-08-30] MEDS ORDERED: Fluticasone Nasal 50 mcg/Spray NS SCH (10:00)
--- NOTE | 2017-08-30 14:27 | NM ---
COMPARISON: Two view chest 08/29/2017 TECHNIQUE: 36.3 mCi technetium 99-m DTPA aerosol. 5.7 mCI technetium 99-m MAA administered intravenously. FINDINGS: VENTILATION COMPONENT: Normal. PERFUSION COMPONENT: Normal. IMPRESSION: Lowprobability ventilation perfusion scan for pulmonary embolism.
[2017-08-30 15:15] VITALS: BP 132/82; PULSE 79; TEMP 98.3; O2SAT 96
--- NOTE | 2017-08-30 15:41 | CON ---
DATE: 08/30/2017 CARDIOLOGY CONSULTATION HISTORY OF PRESENT ILLNESS: The patient is a 62-year-old woman who presents with shortness of breath as well as focal pleuritic like chest pain. Her symptoms are reproducible by inspiration over the left sternal area. PAST MEDICAL HISTORY: History of bronchospasm. She is a former smoker. CARDIAC RISK FACTORS: Free of diabetes mellitus and hypertension. However, she lives a sedentary life and is obese SOCIAL HISTORY: The patient currently does not smoke. REVIEW OF SYSTEMS: A 14-point review of systems was reviewed in detail. No cardiac symptomatology is noted at this time. PHYSICAL EXAMINATION: VITAL SIGNS: Blood pressure is 140/80, heart rate is in the 60s. NECK: Negative JVD. LUNGS: Without rales. HEART: S1, S2. EXTREMITIES: Without edema. The chest pain is reproducible on inspiration. EKG is within normal limits. LABORATORY DATA: Troponins are negative x3. IMPRESSION: 1. Dyspnea, likely due to bronchospasm. 2. Musculoskeletal chest pain. 3. Obesity. 4. Borderline hypertension. PLAN: Given these findings, we will discontinue telemetry today. There is no evidence for acute coronary syndrome. Given her cardiac risk factors, we will arrange for an outpatient stress test. Joshua Dugan MD
--- NOTE | 2017-08-31 01:11 | DS ---
SUBJECTIVE: I saw her sitting up in bed this morning, resting comfortably. She slept very well. She is on DuoNeb, Flonase, ocean spray, Protonix, Pulmicort, Toradol, Zithromax. PHYSICAL EXAMINATION: GENERAL: In no acute distress. VITAL SIGNS: She has 98.2 temp, 64 pulse, 140/79 blood pressure, 18 respiratory rate, and 95% O2 saturation on room air. HEENT: Head is atraumatic and normocephalic. Throat is moist. NECK: Supple. HEART: Regular rate. LUNGS: Clear to auscultation bilaterally. ABDOMEN: Soft, obese, nontender. EXTREMITIES: No edema. LABORATORY DATA: She is negative for flu. Chemistry shows 139 sodium, potassium is 4, BUN is 11, creatinine 0.6, chloride is 106, blood sugar is 116, calcium is 9.4. Total bilirubin is 0.5, AST is 26, ALT is 39, alk phos is 95. All three troponins were less than 0.01. Total protein is 7.5. The D-dimer is high at 365, little bit elevated. Ordered a V/Q scan, if it is negative she can be discharged today. White count is 7.5, hemoglobin 15.2, hematocrit 44.9, platelets 217. She was seen by Pulmonology, awaiting Cardiology. If it is okay with Cardiology and the V/Q scan is negative, she can be discharged today. She will be follow up as an outpatient in my office in 3 days and may be go for an outpatient stress test. She will see here for chest pain, noncardiac, making sure it is not pulmonary at this time. I will get a call from Renny Valentino DO BERT
== END 2017-08-30 16:25 | disposition home or self-care (01) ==
LOC: ED 11:25 → ERH 14:44 → 3RSO 17:34
PROVIDERS: ADMIT Family Medicine; ATTEND Family Medicine
DX: R07.89 Other chest pain (principal); J20.9 Acute bronchitis, unspecified; K21.9 Gastro-esophageal reflux disease without esophagitis; J45.909 Unspecified asthma, uncomplicated; F41.9 Anxiety disorder, unspecified; E66.9 Obesity, unspecified; Z68.42 Body mass index [BMI] 45.0-49.9, adult; R03.0 Elevated blood-pressure reading, without diagnosis of hypertension; Z87.891 Personal history of nicotine dependence
CPT/HCPCS: 36415; 71046; 78582; 80053; 82550; 83615; 83735; 84484; 85025; 85027; 85378; 87804; 93005; 94640; 94760; 96374; 99284; G0378; J1885

== ENCOUNTER 2018-01-08 13:43 | Emergency (ER) | payer BC ==
[2018-01-08 14:40] VITALS: BMI 44.1
--- NOTE | 2018-01-08 14:51 | ED PDOC ---
Arrival/HPI - General Chief Complaint: Headache Time Seen by Provider: 01/08/18 14:50 Historian: Patient - History of Present Illness Narrative History of Present Illness (Text): 01/08/18 14:51 This 62 yo female with pmh migraines, and asthma, presents to this ED c/o COUGHLIN x 2 weeks. Patient stated she has been taking Tylenol for COUGHLIN with mild improvement of symptoms. Patient noted intermittent nausea, and photophobia. Denies fever, stiff neck, diplopia, dysarthria, weakness, paresthesias, dizziness, or abnormal gait. Time/Duration: Other (2 weeks) Context: Home Past Medical History - Provider Review Nursing Documentation Reviewed: Yes - Past History Past History: Non-Contributing - Infectious Disease Hx of Infectious Diseases: None - Tetanus Immunization Tetanus Immunization: Unknown - Reproductive Menopause: Yes - Cardiac Hx Cardiac Arrhythmia: Yes Hx Pacemaker: No - Pulmonary Hx Asthma: Yes Hx Bronchitis: Yes Hx Pneumonia: Yes - Neurological Hx Neurological Disorder: Yes (headache) Hx Dizziness: Yes - HEENT Hx HEENT Disorder: Yes (Rx glasses) - Renal Hx Renal Disorder: No - Endocrine/Metabolic Hx Endocrine Disorders: No - Hematological/Oncological Hx Blood Disorders: No - Integumentary Hx Dermatological Disorder: No - Musculoskeletal/Rheumatological Hx Falls: Yes - Gastrointestinal Hx Gastrointestinal Disorders: Yes Hx Gastroesophageal Reflux: Yes - Genitourinary/Gynecological Hx Genitourinary Disorders: Yes Hx Urinary Tract Infection: Yes - Psychiatric Hx Anxiety: Yes Hx Depression: Yes Hx Substance Use: No - Surgical History Hx Cholecystectomy: Yes - Anesthesia Hx Anesthesia: Yes Hx Anesthesia Reactions: No Hx Malignant Hyperthermia: No - Suicidal Assessment Feels Threatened In Home Enviroment: No Family/Social History - Physician Review Nursing Documentation Reviewed: Yes Family/Social History: Other (noncontributory) Smoking Status: Former Smoker Hx Alcohol Use: No Hx Substance Use: No Hx Substance Use Treatment: No Allergies/Home Meds Allergies/Adverse Reactions: Allergies hydrocodone Allergy (Severe, Verified 01/08/18 14:48) ANAPHYLAXIS Iodine and Iodide Containing Produc Allergy (Severe, Verified 01/08/18 14:48) ANAPHYLAXIS oxycodone Allergy (Severe, Verified 01/08/18 14:48) ANAPHYLAXIS Penicillins Allergy (Severe, Verified 01/08/18 14:48) ANAPHYLAXIS shellfish derived Allergy (Severe, Verified 01/08/18 14:48) ANAPHYLAXIS iodine Allergy (Verified 01/08/18 14:48) ANAPHYLAXIS SEAFOOD Allergy (Severe, Uncoded 01/08/18 14:48) ANAPHYLAXIS seafood Allergy (Severe, Uncoded 01/08/18 14:48) ANAPHYLAXIS Home Medications: Home Meds Medication Instructions Recorded Confirmed Albuterol HFA [Ventolin HFA 90 1 inh INH PRN PRN 09/11/17 01/08/18 mcg/actuation (8 g)] Review of Systems - Review of Systems Constitutional: Normal. absent: Fatigue, Weight Change, Fevers Eyes: Photophobia. absent: Vision Changes, Eye Pain ENT: Normal. absent: Sore Throat, Rhinorrhea Respiratory: Normal. absent: SOB, Cough, Sputum, Wheezing Cardiovascular: Normal. absent: Chest Pain, Palpitations Gastrointestinal: Nausea. absent: Abdominal Pain, Vomiting Genitourinary Female: Normal. absent: Dysuria, Frequency, Hematuria Musculoskeletal: Normal Skin: Normal Neurological: Headache. absent: Dizziness, Focal Weakness, Gait Changes, Speech Changes, Facial Droop, Disequilibrium, Seizure Endocrine: Normal Hemo/Lymphatic: Normal Psychiatric: Normal Physical Exam Vital Signs Temp Pulse Resp BP Pulse Ox 01/08/18 14:43 98.4 F 62 18 145/76 97 Temperature: Afebrile Blood Pressure: Normal Pulse: Regular Respiratory Rate: Normal Appearance: Positive for: Well-Appearing, Non-Toxic, Comfortable Pain Distress: None Mental Status: Positive for: Alert and Oriented X 3 - Systems Exam Head: Present: Atraumatic, Normocephalic Pupils: Present: PERRL Extroacular Muscles: Present: EOMI Conjunctiva: Present: Normal Mouth: Present: Moist Mucous Membranes Neck: Present: Normal Range of Motion Respiratory/Chest: Present: Clear to Auscultation, Good Air Exchange. No: Respiratory Distress, Accessory Muscle Use Cardiovascular: Present: Regular Rate and Rhythm, Normal S1, S2. No: Murmurs Abdomen: No: Tenderness, Distention, Peritoneal Signs Back: Present: Normal Inspection. No: CVA Tenderness Upper Extremity: Present: Normal Inspection, Normal ROM. No: Cyanosis, Edema Lower Extremity: Present: Normal Inspection, Normal ROM. No: Edema Neurological: Present: GCS=15, CN II-XII Intact, Speech Normal Skin: Present: Warm, Dry, Normal Color. No: Rashes Psychiatric: Present: Alert, Oriented x 3, Normal Insight, Normal Concentration Medical Decision Making ED Course and Treatment: 01/08/18 17:56 Re-evaluation. Patient feels better. Discussed results and plan with patient who expresses understanding. All questions answered and there is agreement with the plan to discharge home with instructions. Patient stable for discharge. Return if symptoms persist or worsen. Re-evaluation Time: 17:56 Reassessment Condition: Re-examined, Improved - Medication Orders Current Medication Orders: Discontinued Medications Diphenhydramine HCl (Benadryl) 50 mg IVP STAT STA Stop: 01/08/18 15:02 Last Admin: 01/08/18 16:12 Dose: 50 mg IVP Administration Document 01/08/18 16:12 IT (Rec: 01/08/18 16:12 IT [id number]) Charges for Administration # of IVP Administrations 1 Sodium Chloride (Sodium Chloride 0.9%) 1,000 mls @ 999 mls/hr IV .Q1H1M STA Stop: 01/08/18 16:01 Last Admin: 01/08/18 16:13 Dose: 999 mls/hr eMAR Start Stop Document 01/08/18 16:13 IT (Rec: 01/08/18 16:13 IT [id number]) Intravenous Solution Start Date 01/08/18 Start Time 16:13 End Date 01/08/18 Ketorolac Tromethamine (Toradol) 15 mg IVP STAT STA Stop: 01/08/18 15:03 Last Admin: 01/08/18 16:12 Dose: 15 mg MAR Pain Assessment Document 01/08/18 16:12 IT (Rec: 01/08/18 16:12 IT [id number]) Pain Reassessment Is this a pain reassessment? No Sleep Is patient sleeping during reassessment? No Presence of Pain Presence of Pain Yes Pain Scale Used Pain Scale Used Numeric IVP Administration Document 01/08/18 16:12 IT (Rec: 01/08/18 16:12 IT [id number]) Charges for Administration # of IVP Administrations 1 Metoclopramide HCl (Reglan) 10 mg IVP STAT STA Stop: 01/08/18 15:02 Last Admin: 01/08/18 16:12 Dose: 10 mg IVP Administration Document 01/08/18 16:12 IT (Rec: 01/08/18 16:13 [id number]) Charges for Administration # of IVP Administrations 1 Disposition/Present on Arrival - Present on Arrival Any Indicators Present on Arrival: No History of DVT/PE: No History of Uncontrolled Diabetes: No Urinary Catheter: No History of Decub. Ulcer: No History Surgical Site Infection Following: None - Disposition Have Diagnosis and Disposition been Completed?: Yes Diagnosis: Headache Disposition: HOME/ ROUTINE Disposition Time: 17:57 Patient Plan: Discharge Condition: GOOD Discharge Instructions (ExitCare): Headache, Adult (DC) Additional Instructions: Call private doctor and neurologist for revaluation in 1-2 days. Take medication as instructed with food. Return to emergency if symptoms returns Prescriptions: Acetaminophen/Butalbital/Caf [Fioricet] 1 tab PO Q4H PRN #12 tab PRN Reason: Headache Famotidine [Pepcid] 40 mg PO DAILY #10 tablet Naproxen 500 mg PO BID PRN #14 tab PRN Reason: Pain, Severe (8-10) Referrals: PCP,NO [Primary Care Provider] - Follow up with primary Lisa Pillai MD [Staff Provider] - Follow up with primary Forms: [facility] ([employer]), WORK NOTE
[2018-01-08] MEDS ORDERED: Sodium Chloride 0.9% 1,000 ML IV STA (15:01)
[2018-01-08] MEDS ORDERED: DiphenhydrAMINE 50 mg/ml Inj IVP STA (15:01)
[2018-01-08 18:19] VITALS: BP 122/56; PULSE 80; RESP 16; TEMP 98; O2SAT 99
== END 2018-01-08 18:25 | disposition home or self-care (01) ==
LOC: ED 13:43
DX: R51 Headache (principal); Z87.891 Personal history of nicotine dependence
CPT/HCPCS: 96374; 96375; 99285; J1200; J1885; J2765; J7040

== ENCOUNTER 2018-01-27 14:36 | Emergency (ER) | payer BC ==
[2018-01-27 14:37] VITALS: BMI 44.1
[2018-01-27 14:55] VITALS: TEMP 99.6
[2018-01-27 14:57] VITALS: RESP 18
[2018-01-27] MEDS ORDERED: Albuterol-Ipratrop 3 mg / 0.5 (3 ml) UD IH STA (15:16)
--- NOTE | 2018-01-27 15:26 | ED PDOC ---
Arrival/HPI - General Chief Complaint: Cough, Cold, Congestion Time Seen by Provider: 01/27/18 15:07 Historian: Patient - History of Present Illness Narrative History of Present Illness (Text): 01/27/18 15:20 62 year old female, with no significant past medical history, who presents to the emergency department from a local urgent care facility for a referral complaining of a productive cough with fever x 2 days. Patient notes associated shortness of breath, mild chest tightness, and urinary frequency. Patient notes a temperature max of 102, recorded today. pt was given tylenol prior to Emergency department arrival; Patient also notes chills/shakes/rigors that occurred overnight. Patient arrived to the emergency department prior to taking tylenol for fever. Patient denies any nausea, vomiting, diarrhea, back pain, neck pain, headache, dizziness, or any other complaints. Patient is here for further evaluation pt denied LOC pt denied fall/trauma/sick contact, travel PCP: none Time/Duration: < week (2 days) Symptom Onset: Gradual Symptom Course: Unchanged Activities at Onset: Light Context: Home Past Medical History - Provider Review Nursing Documentation Reviewed: Yes - Travel History Have you recently traveled outside [place] w/in the past 3 mons?: No - Past History Past History: Non-Contributing - Infectious Disease Hx of Infectious Diseases: None - Tetanus Immunization Tetanus Immunization: Unknown - Reproductive Menopause: Yes Currently : No - Cardiac Hx Cardiac Arrhythmia: Yes Hx Pacemaker: No - Pulmonary Hx Asthma: Yes Hx Bronchitis: Yes Hx Pneumonia: Yes - Neurological Hx Neurological Disorder: Yes (headache) Hx Dizziness: Yes - HEENT Hx HEENT Disorder: Yes (Rx glasses) - Renal Hx Renal Disorder: No - Endocrine/Metabolic Hx Endocrine Disorders: No - Hematological/Oncological Hx Blood Disorders: No - Integumentary Hx Dermatological Disorder: No - Musculoskeletal/Rheumatological Hx Falls: Yes - Gastrointestinal Hx Gastrointestinal Disorders: Yes Hx Gastroesophageal Reflux: Yes - Genitourinary/Gynecological Hx Genitourinary Disorders: Yes Hx Urinary Tract Infection: Yes - Psychiatric Hx Anxiety: Yes Hx Depression: Yes Hx Substance Use: No - Surgical History Hx Cholecystectomy: Yes - Anesthesia Hx Anesthesia: Yes Hx Anesthesia Reactions: No Hx Malignant Hyperthermia: No - Suicidal Assessment Feels Threatened In Home Enviroment: No Family/Social History - Physician Review Nursing Documentation Reviewed: Yes Family/Social History: Unknown Family HX Smoking Status: Former Smoker Hx Alcohol Use: No Hx Substance Use: No Hx Substance Use Treatment: No Allergies/Home Meds Allergies/Adverse Reactions: Allergies hydrocodone Allergy (Severe, Verified 01/27/18 14:49) ANAPHYLAXIS Iodine and Iodide Containing Produc Allergy (Severe, Verified 01/27/18 14:49) ANAPHYLAXIS oxycodone Allergy (Severe, Verified 01/27/18 14:49) ANAPHYLAXIS Penicillins Allergy (Severe, Verified 01/27/18 14:49) ANAPHYLAXIS shellfish derived Allergy (Severe, Verified 01/27/18 14:49) ANAPHYLAXIS iodine Allergy (Verified 01/27/18 14:49) ANAPHYLAXIS SEAFOOD Allergy (Severe, Uncoded 01/27/18 14:49) ANAPHYLAXIS seafood Allergy (Severe, Uncoded 01/27/18 14:49) ANAPHYLAXIS Home Medications: Home Meds Medication Instructions Recorded Confirmed Albuterol HFA [Ventolin HFA 90 1 inh INH PRN PRN 09/11/17 01/08/18 mcg/actuation (8 g)] Review of Systems - Physician Review All systems were reviewed & negative as marked: Yes - Review of Systems Constitutional: Normal Eyes: Normal ENT: Normal Respiratory: SOB, Cough Cardiovascular: Chest Pain Gastrointestinal: Normal. absent: Abdominal Pain, Diarrhea, Nausea, Vomiting, Appetite Changes Genitourinary Female: Frequency. absent: Dysuria, Hematuria, Urine Output Changes Musculoskeletal: Normal. absent: Back Pain, Neck Pain Skin: Normal. absent: Rash Neurological: Normal. absent: Headache Endocrine: Normal Hemo/Lymphatic: Normal Psychiatric: Normal Physical Exam - Physical Exam Narrative Physical Exam (Text): 01/27/18 1510 General: alert/awake, GCS = 15, oriented x 3, resting in bed, uncomfortable, cooperative, interactive; NAD Head: NC/AT EYE: PERRLA, EOMI, sclera anicteric, no nystagmus, no photophobia; visual field intact b/l Facial: WNL Oral: uvula/tongue are midline, no exudate/lesions, no drooling/stridor, no dysphonia; intact dentitions; mild dry oral mucosa NECK: intact ROM, no midline tenderness, no nuchal rigidity, no meningeal signs ; no step off Chest: CTA b/l, no w/r/r; no tachypenia, no accessory muscle use noted; coarse breath sounds right > left Cardiac: +S1, +S2, no m/r/r, no tachycardia Abdominal: +BS, soft/nd/nt, well nourished/obese patient; no masses/rebound/ guarding/rigidity; no bennett's sign, no mcburney's point tenderness Extremities: intact ROM, strength 5/5 grossly intact in all limbs, neurovasc intact b/l; + ambulatory; reflex +2/2; no filomena's sign b/l, no pitting edema noted b/l BACK: no step off, no midline tenderness, NO crepitus, no gross deformities noted; Intact ROM SKIN: cap refill < 1 sec, no ulcerations, no petechiae, no rashes; no pallor noted NEURO: CNII-XII WNL, no facial asymmetries, no slurr speech, oriented x 3 NIH stroke scale ~ 0 Psych: normal insight, normal affect; follows command with ease Vital Signs Reviewed: Yes Vital Signs Temp Pulse Resp BP Pulse Ox 01/27/18 14:55 99.6 F 116 H 18 132/83 99 Temperature: Afebrile Blood Pressure: Normal Pulse: Tachycardic Respiratory Rate: Normal Appearance: Positive for: Well-Appearing, Non-Toxic, Uncomfortable. No: Comfortable, Ill-Appearing, Unkept Pain Distress: None Mental Status: Positive for: Alert and Oriented X 3 - Systems Exam Head: Present: Atraumatic, Normocephalic Medical Decision Making ED Course and Treatment: 01/27/18 15:27 Impression: 62 year old female who presents to the emergency department complaining of productive cough with fever x 2 days. Differential Diagnosis included but are not limited to: Pneumonia vs. rule out pulmonary pathology vs. rule out electrolyte arrangement such as new onset diabetes or possible UTI. Plan: -- VBG -- EKG -- Labs -- Magnesium -- Chest X-ray -- Duoneb -- Motrin -- Blood Culture -- Rapid Flu -- Urinalysis -- Reassess and disposition Progress Notes: 1700 pt is doing well pt is comfortable pt is not in any distress pt felt improved pt is awaiting diagnostic results 1830 vital signs are much improved pt is made aware of her medical results pt is encouraged fluids pt is instructed on 1 tsp of honey every 8hours for cough control pt will f/u as directed pt will be discharged home Re-evaluation Time: 18:30 Reassessment Condition: Improved - Lab Interpretations Lab Results: 01/27/18 16:00 01/27/18 16:00 Lab Results 01/27/18 16:30: Urine Color Yellow, Urine Appearance Clear, Urine pH 7.0, Ur Specific [place] 1.010, Urine Protein Negative, Urine Glucose (UA) Negative, Urine Ketones Negative, Urine Blood Negative, Urine Nitrate Negative, Urine Bilirubin Negative, Urine Urobilinogen 0.2, Ur Leukocyte Esterase Negative 01/27/18 16:00: Influenza Typ A,B (EIA) Negative for flu a/b 01/27/18 16:00: Serum Osmolality 284 01/27/18 16:00: Sodium 141, Chloride 103, Potassium 4.1, Carbon Dioxide 27, Anion Gap 16, BUN 8, Creatinine 0.8, Est GFR ( Amer) > 60, Est GFR (Non- Af Amer) > 60, Random Glucose 93, Calcium 9.4, Magnesium 2.0, Total Bilirubin 0.5, AST 35, ALT 44, Alkaline Phosphatase 101, NT-Pro-B Natriuret Pep 371, Total Protein 7.4, Albumin 4.1, Globulin 3.3, Albumin/Globulin Ratio 1.2 01/27/18 16:00: pO2 27 L, VBG pH 7.40, VBG pCO2 48.0, VBG HCO3 29.7 H, VBG Total CO2 31.2 H, VBG O2 Sat (Calc) 58.0, VBG Base Excess 4.0 H, VBG Potassium 4.2, Sodium 139.0, Chloride 104.0, Glucose 94, Lactate 0.9, FiO2 21.0, Venous Blood Potassium 4.2 01/27/18 16:00: WBC 6.3, RBC 5.38, Hgb 14.5, Hct 42.6, MCV 79.2 L, MCH 27.0, MCHC 34.0, RDW 13.8, Plt Count 195, MPV 9.6, Gran % 69.5 H, Lymph % (Auto) 19.6 L, [place] % (Auto) 9.6 H, Eos % (Auto) 1.1 L, Baso % (Auto) 0.2, Gran # 4.41, Lymph # (Auto) 1.2, [place] # (Auto) 0.6, Eos # (Auto) 0.1, Baso # (Auto) 0.01 I have reviewed the lab results: Yes Interpretation: All labs normal - RAD Interpretation Narrative RAD Interpretations (Text): 01/27/18 16:50 Chest X-ray reviewed, shows: LUNGS: Right lower lobe atelectasis and or infiltrate. Persistent scarring right medial lung base as well unchanged. . Suspect minimal left basilar atelectasis PLEURA: No significant pleural effusion identified. No pneumothorax apparent. CARDIOVASCULAR: Normal. OSSEOUS STRUCTURES: No significant abnormalities. VISUALIZED UPPER ABDOMEN: Normal. OTHER FINDINGS: None. IMPRESSION: Right lower lobe atelectasis and or infiltrate. Persistent scarring right medial lung base as well unchanged. . Suspect minimal left basilar atelectasis Radiology Orders: 01/27/18 15:16 CHEST TWO VIEWS (PA/LAT) [RAD] Stat Sampler Pickup: Radiologist - Medication Orders Current Medication Orders: Discontinued Medications Albuterol/Ipratropium (Duoneb 3 Mg/0.5 Mg (3 Ml) Ud) 3 ml IH STAT STA Stop: 01/27/18 15:17 Last Admin: 01/27/18 15:41 Dose: 3 ml Ceftriaxone Sodium (Rocephin 1 Gram Ivpb) 1 gm in 100 mls @ 200 mls/hr IVPB STAT STA PRN Reason: Protocol Stop: 01/27/18 17:19 Last Admin: 01/27/18 18:00 Dose: Not Given Non-Admin Reason: Patient Refused eMAR Start Stop Document 01/27/18 18:00 EQ (Rec: 01/27/18 18:01 EQ [id number]) Intravenous Solution Start Date 01/27/18 Start Time 18:01 Azithromycin (Zithromax 500mg In Ns) 500 mg in 250 mls @ 167 mls/hr IVPB STAT STA PRN Reason: Protocol Stop: 01/27/18 18:19 Last Admin: 01/27/18 18:00 Dose: 167 mls/hr eMAR Start Stop Document 01/27/18 18:00 EQ (Rec: 01/27/18 18:00 EQ [id number]) Intravenous Solution Start Date 01/27/18 Start Time 18:00 Ibuprofen (Motrin Tab) 600 mg PO STAT STA Stop: 01/27/18 15:18 Last Admin: 01/27/18 15:41 Dose: 600 mg MAR Pain/Vitals Document 01/27/18 15:41 EQ (Rec: 01/27/18 15:41 EQ [id number]) Pain Reassessment Is This A Pain ReAssessment? No Sleep Is patient sleeping during reassessment? No Presence of Pain Presence of Pain Yes - Scribe Statement The provider has reviewed the documentation as recorded by the Scribsonja Luong All medical record entries made by the Scribe were at my direction and personally dictated by me. I have reviewed the chart and agree that the record accurately reflects my personal performance of the history, physical exam, medical decision making, and the department course for this patient. I have also personally directed, reviewed, and agree with the discharge instructions and disposition. Disposition/Present on Arrival - Present on Arrival Any Indicators Present on Arrival: No History of DVT/PE: No History of Uncontrolled Diabetes: No Urinary Catheter: No History of Decub. Ulcer: No History Surgical Site Infection Following: None - Disposition Have Diagnosis and Disposition been Completed?: Yes Diagnosis: Pneumonia Disposition: HOME/ ROUTINE Disposition Time: 19:05 Patient Plan: Discharge Condition: STABLE Discharge Instructions (ExitCare): Pneumonia in Adults Print Language: NIGERIEN Additional Instructions: Make sure to see your doctor in 1-2 days DRINK PLENTY OF FLUIDS take your medications as prescribed RETURN TO ED IF worse pain, cant breath, persistent vomiting, high fever >101- 102 for hours, altered behavior, slurr speech, facial changes, focal weakness ( arm/leg or both), unable to urinate, heavy/persistent bleeding, passing out, chest pain, or other medical emergencies Prescriptions: Azithromycin [Zithromax] 250 mg PO DAILY #4 tab Ibuprofen [Motrin] 600 mg PO QID PRN #30 tab PRN Reason: Fever >100.4 F Referrals: PCP,NO [Primary Care Provider] - Follow up with primary [facility] [Outside] - Follow up with primary [facility] [Outside] - Follow up with primary [facility] [Outside] - Follow up with primary Forms: [employer] (Croatian)
[2018-01-27 16:22] LABS: BASO # 0.01 K/mm3 (0.0-2.0); BASO % 0.2 % (0.0-3.0); EOS # 0.1 (0.0-0.7); EOS % 1.1 % (1.5-5.0); GRAN # 4.41 (1.4-6.5); GRAN % 69.5 % (50.0-68.0); HEMOGLOBIN 14.5 g/dL (12.0-16.0); LYMPH # 1.2 (1.2-3.4); LYMPH % 19.6 % (22.0-35.0); MEAN CELL VOLUME 79.2 fl (80.0-105.0); MEAN PLATELET VOLUME 9.6 fl (7.0-11.0); MONO # 0.6 (0.1-0.6); MONO % 9.6 % (1.0-6.0); RBC 5.38 10^6/uL (3.5-6.1); RED CELL DISTRIBUTION WIDTH 13.8 % (11.5-14.5); WHITE BLOOD COUNT 6.3 10^3/ul (4.5-11.0)
[2018-01-27 16:28] LABS: VENOUS BLOOD GAS PO2 27 mm/Hg (30-55)
[2018-01-27 16:31] LABS: ALB/GLOB RATIO 1.2 (1.1-1.8); ALBUMIN 4.1 g/dL (3.0-4.8); ALT/SGPT 44 U/L (7-56); AST/SGOT 35 U/L (14-36); BLOOD UREA NITROGEN 8 mg/dL (7-21); CALCIUM 9.4 mg/dL (8.4-10.5); GFR AFRICAN-AMERICAN > 60; GFR NON-AFRICAN AMERICAN > 60
[2018-01-27 16:37] LABS: B-TYPE NATRIURETIC PEPTIDE 371 pg/mL (0-450)
--- NOTE | 2018-01-27 16:40 | RAD ---
HISTORY: coughing/fever COMPARISON: Comparison chest 08/29/2017 TECHNIQUE: Chest PA and lateral FINDINGS: LUNGS: Right lower lobe atelectasis and or infiltrate. Persistent scarring right medial lung base as well unchanged. . Suspect minimal left basilar atelectasis PLEURA: No significant pleural effusion identified. No pneumothorax apparent. CARDIOVASCULAR: Normal. OSSEOUS STRUCTURES: No significant abnormalities. VISUALIZED UPPER ABDOMEN: Normal. OTHER FINDINGS: None. IMPRESSION: Right lower lobe atelectasis and or infiltrate. Persistent scarring right medial lung base as well unchanged. . Suspect minimal left basilar atelectasis
[2018-01-27] MEDS ORDERED: cefTRIAXone 1 gm 1 GM/100 ML BAG IVPB STA (16:50)
[2018-01-27] MEDS ORDERED: Azithromycin 500MG/NS 250ml 500 MG/250 ML BAG IVPB STA (16:50)
[2018-01-27 16:54] LABS: URINE BILIRUBIN NEGATIVE (NEGATIVE); URINE BLOOD NEGATIVE (NEGATIVE); URINE GLUCOSE (UA) NEGATIVE (NEGATIVE); URINE LEUKOCYTE ESTERASE NEGATIVE Leu/uL (NEGATIVE); URINE PROTEIN NEGATIVE mg/dL (<30 mg/dL); URINE UROBILINOGEN 0.2 E.U./dL (<1 E.U./dL)
[2018-01-27 16:57] LABS: URINE APPEARANCE CLEAR (CLEAR); URINE COLOR YELLOW (YELLOW)
[2018-01-27 19:32] VITALS: BP 130/86; PULSE 96; O2SAT 100
== END 2018-01-27 20:08 | disposition home or self-care (01) ==
LOC: ED 14:36
DX: J18.9 Pneumonia, unspecified organism (principal); I49.9 Cardiac arrhythmia, unspecified; Z87.891 Personal history of nicotine dependence
CPT/HCPCS: 71046; 80053; 81003; 82803; 83735; 83880; 83930; 85025; 87040; 87804; 96374; 99283; J0456

== ENCOUNTER 2018-02-07 12:23 | Inpatient (IN) | payer BC ==
[2018-02-07] MEDS ORDERED: Albuterol-Ipratrop 3 mg / 0.5 (3 ml) UD IH STA (13:16)
[2018-02-07 13:24] LABS: BASO # 0.02 K/mm3 (0.0-2.0); BASO % 0.2 % (0.0-3.0); EOS # 0.2 (0.0-0.7); EOS % 1.7 % (1.5-5.0); GRAN # 6.28 (1.4-6.5); HEMOGLOBIN 14.1 g/dL (12.0-16.0); LYMPH # 2.8 (1.2-3.4); LYMPH % 27.8 % (22.0-35.0); MEAN CELL VOLUME 80.1 fl (80.0-105.0); MEAN CORPUSCULAR HEMOGLOBIN 26.5 pg (25.0-35.0); MEAN CORPUSCULAR HGB CONC 33.1 g/dl (31.0-37.0); MEAN PLATELET VOLUME 9.8 fl (7.0-11.0); MONO # 0.7 (0.1-0.6); MONO % 7.3 % (1.0-6.0); RBC 5.32 10^6/uL (3.5-6.1)
[2018-02-07 13:33] LABS: ALB/GLOB RATIO 1.2 (1.1-1.8); ALBUMIN 3.5 g/dL (3.0-4.8); ALT/SGPT 58 U/L (7-56); AST/SGOT 25 U/L (14-36); BLOOD UREA NITROGEN 14 mg/dL (7-21); CALCIUM 8.9 mg/dL (8.4-10.5); GFR AFRICAN-AMERICAN > 60; GFR NON-AFRICAN AMERICAN > 60
[2018-02-07 13:41] LABS: INR 0.99 (0.93-1.08); PARTIAL THROMBOPLASTIN TIME 27.8 Seconds (25.1-36.5); PROTHROMBIN TIME 11.3 SECONDS (9.4-12.5)
[2018-02-07 13:45] LABS: B-TYPE NATRIURETIC PEPTIDE 101 pg/mL (0-450); TROPONIN I < 0.01 ng/mL
--- NOTE | 2018-02-07 13:46 | RAD ---
HISTORY: cough, chest pain COMPARISON: 01/27/2018 FINDINGS: LUNGS: No significant appearing consolidation noted. Linear discoid like atelectasis and/or fibrosis right mid lower lung zone -similar appearing PLEURA: No significant pleural effusion identified, no pneumothorax apparent. CARDIOVASCULAR: Mild cardiomegaly. Possible mild pulmonary venous congestion). OSSEOUS STRUCTURES: Right shoulder arthrosis VISUALIZED UPPER ABDOMEN: Normal. OTHER FINDINGS: None. IMPRESSION: No significant appearing consolidation. Linear discoid like atelectasis and/or fibrosis right mid lower lung zone -similar appearing Cardiomegaly-similar. Possible mild pulmonary venous congestion - similar appearing pulmonary vasculature
[2018-02-07 16:03] LABS: URINE BILIRUBIN NEGATIVE (NEGATIVE); URINE BLOOD NEGATIVE (NEGATIVE); URINE GLUCOSE (UA) NEGATIVE (NEGATIVE); URINE LEUKOCYTE ESTERASE TRACE Leu/uL (NEGATIVE); URINE PROTEIN NEGATIVE mg/dL (<30 mg/dL); URINE UROBILINOGEN 0.2 E.U./dL (<1 E.U./dL)
[2018-02-07 16:14] LABS: URINE COLOR YELLOW (YELLOW)
[2018-02-07 16:19] LABS: URINE APPEARANCE CLEAR (CLEAR); URINE BACTERIA FEW (NEG); URINE RBC NEGATIVE /hpf (0-2)
[2018-02-07] MEDS: Albuterol-Ipratrop 3 mg / 0.5 (3 ml) UD IH SCH ×4 (16:28→20:14)
--- NOTE | 2018-02-07 16:33 | ED PDOC ---
Arrival/HPI - General Chief Complaint: Shortness Of Breath Time Seen by Provider: 02/07/18 12:25 Historian: Patient - History of Present Illness Narrative History of Present Illness (Text): 02/07/18 16:30 Patient is a 62 yo female past medical history of asthma and recent diagnosis of pneumonia, presents to the Emergency department with one week history of persistent cough with increasing shortness of breath over past day, and chest pain with coughing. She reports productive sputum. Denies pleuritic pain. Denies hemoptysis. Denies calf pain or swelling. States she was recently prescribed Levaquin after already finishing an initial course of antibiotics and symptoms have not improved. Denies fevers or chills. Time/Duration: > week Symptom Onset: Gradual Past Medical History - Past History Past History: Non-Contributing - Infectious Disease Hx of Infectious Diseases: None - Tetanus Immunization Tetanus Immunization: Unknown - Cardiac Hx Cardiac Arrhythmia: Yes Hx Pacemaker: No - Pulmonary Hx Asthma: Yes Hx Bronchitis: Yes Hx Pneumonia: Yes - Neurological Hx Neurological Disorder: Yes (headache) Hx Dizziness: Yes - HEENT Hx HEENT Disorder: Yes (Rx glasses) - Renal Hx Renal Disorder: No - Endocrine/Metabolic Hx Endocrine Disorders: No - Hematological/Oncological Hx Blood Disorders: No - Integumentary Hx Dermatological Disorder: No - Musculoskeletal/Rheumatological Hx Falls: Yes - Gastrointestinal Hx Gastrointestinal Disorders: Yes Hx Gastroesophageal Reflux: Yes - Genitourinary/Gynecological Hx Genitourinary Disorders: Yes Hx Urinary Tract Infection: Yes - Psychiatric Hx Anxiety: Yes Hx Depression: Yes Hx Substance Use: No - Surgical History Hx Cholecystectomy: Yes - Anesthesia Hx Anesthesia: Yes Hx Anesthesia Reactions: No Hx Malignant Hyperthermia: No - Suicidal Assessment Feels Threatened In Home Enviroment: No Family/Social History Family/Social History: Unknown Family HX Smoking Status: Former Smoker Hx Alcohol Use: No Hx Substance Use: No Hx Substance Use Treatment: No Allergies/Home Meds Allergies/Adverse Reactions: Allergies hydrocodone Allergy (Severe, Verified 01/27/18 14:49) ANAPHYLAXIS Iodine and Iodide Containing Produc Allergy (Severe, Verified 01/27/18 14:49) ANAPHYLAXIS oxycodone Allergy (Severe, Verified 01/27/18 14:49) ANAPHYLAXIS Penicillins Allergy (Severe, Verified 01/27/18 14:49) ANAPHYLAXIS shellfish derived Allergy (Severe, Verified 01/27/18 14:49) ANAPHYLAXIS iodine Allergy (Verified 01/27/18 14:49) ANAPHYLAXIS SEAFOOD Allergy (Severe, Uncoded 01/27/18 14:49) ANAPHYLAXIS seafood Allergy (Severe, Uncoded 01/27/18 14:49) ANAPHYLAXIS Home Medications: Home Meds Medication Instructions Recorded Confirmed Albuterol HFA [Ventolin HFA 90 1 inh INH PRN PRN 09/11/17 02/07/18 mcg/actuation (8 g)] Review of Systems - Review of Systems Constitutional: Fatigue. absent: Fevers Eyes: absent: Vision Changes ENT: Sinus Congestion. absent: Hearing Changes, Sore Throat Respiratory: SOB, Cough, Sputum, Wheezing Cardiovascular: Chest Pain, CURRY. absent: Palpitations, Edema, Calf Pain Gastrointestinal: absent: Abdominal Pain, Nausea, Vomiting Genitourinary Female: absent: Dysuria, Frequency Musculoskeletal: absent: Back Pain Skin: absent: Rash Neurological: absent: Headache, Dizziness Endocrine: absent: Polyuria Hemo/Lymphatic: absent: Easy Bleeding Psychiatric: absent: Depression Physical Exam Vital Signs Reviewed: Yes Vital Signs Temp Pulse Resp BP Pulse Ox 02/07/18 15:32 98.5 F 78 18 127/84 99 02/07/18 12:48 20 97 02/07/18 12:34 98.3 F 73 18 125/72 98 Temperature: Afebrile Pulse: Regular Respiratory Rate: Tachypneic Appearance: Positive for: Uncomfortable Pain Distress: Mild Mental Status: Positive for: Alert and Oriented X 3 - Systems Exam Head: Present: Atraumatic Pupils: Present: PERRL Extroacular Muscles: Present: EOMI Mouth: Present: Moist Mucous Membranes Pharnyx: No: ERYTHEMA Nose (Internal): Present: Normal Inspection Neck: Present: Normal Range of Motion. No: Meningeal Signs Respiratory/Chest: Present: Wheezes, Rhonchi, Tachypneic, Tender to Palpation. No: Accessory Muscle Use, Retracting Cardiovascular: Present: Regular Rate and Rhythm, Murmurs Abdomen: Present: Normal Bowel Sounds. No: Tenderness, Peritoneal Signs Back: No: CVA Tenderness Upper Extremity: No: Cyanosis, Edema Lower Extremity: No: Edema, CALF TENDERNESS Neurological: Present: Motor Func Grossly Intact, Normal Sensory Function Skin: Present: Warm Psychiatric: Present: Alert, Normal Insight, Normal Concentration Medical Decision Making ED Course and Treatment: 02/07/18 16:34 Patient's prior ER visit reviewed. Patient recently diagnosed with pneumonia, has been on antibiotics. CXR appears unchanged from previous today. Diffuse wheezing noted on exam. After multiple nebulizers and iv steroids, wheezing improved but persistent. Chest pain I feel is muscular, secondary to coughing most likely. EKG unremarkable. Troponin unremarkable. Will admit to Dr. Owen's service for failure of outpatient treatment, asthma exacerbation. - Lab Interpretations Lab Results: 02/07/18 12:52 02/07/18 12:52 Lab Results 02/07/18 12:52: Sodium 141, Potassium 4.4, Chloride 100, Carbon Dioxide 32, Anion Gap 13, BUN 14, Creatinine 0.7, Est GFR ( Amer) > 60, Est GFR (Non- Af Amer) > 60, Random Glucose 105, Calcium 8.9, Total Bilirubin 0.3, AST 25, ALT 58 H, Alkaline Phosphatase 79, Lactate Dehydrogenase 466, Total Creatine Kinase 31 L, Troponin I < 0.01, NT-Pro-B Natriuret Pep 101, Total Protein 6.4, Albumin 3.5, Globulin 2.9, Albumin/Globulin Ratio 1.2 02/07/18 12:52: PT 11.3, INR 0.99, APTT 27.8 02/07/18 12:52: WBC 10.0 D, RBC 5.32, Hgb 14.1, Hct 42.6, MCV 80.1, MCH 26.5, MCHC 33.1, RDW 14.0, Plt Count 262, MPV 9.8, Gran % 63.0, Lymph % (Auto) 27.8, [place] % (Auto) 7.3 H, Eos % (Auto) 1.7, Baso % (Auto) 0.2, Gran # 6.28, Lymph # ( Auto) 2.8, [place] # (Auto) 0.7 H, Eos # (Auto) 0.2, Baso # (Auto) 0.02 - RAD Interpretation Radiology Orders: 02/07/18 13:15 CHEST PORTABLE [RAD] Stat - EKG Interpretation EKG Interpretation (Text): 02/07/18 16:35 EKG at 12:29 normal sinus rhythm rate of [address] elevations Interpreted by ED Physician: Yes Type: 12 lead EKG - Medication Orders Current Medication Orders: Discontinued Medications Albuterol/Ipratropium (Duoneb 3 Mg/0.5 Mg (3 Ml) Ud) 3 ml IH STAT STA Stop: 02/07/18 13:17 Last Admin: 02/07/18 15:13 Dose: 3 ml Albuterol/Ipratropium (Duoneb 3 Mg/0.5 Mg (3 Ml) Ud) 3 ml IH Q15M KAN Stop: 02/07/18 16:01 Last Admin: 02/07/18 16:28 Dose: 3 ml Methylprednisolone (Solu-Medrol) 125 mg IVP STAT STA Stop: 02/07/18 13:17 Last Admin: 02/07/18 15:13 Dose: 125 mg IVP Administration Document 02/07/18 15:13 [email or web address] (Rec: 02/07/18 15:13 [email or web address] [id number]) Charges for Administration # of IVP Administrations 1 Disposition/Present on Arrival - Present on Arrival Any Indicators Present on Arrival: No History of DVT/PE: No History of Uncontrolled Diabetes: No Urinary Catheter: No History of Decub. Ulcer: No History Surgical Site Infection Following: None - Disposition Have Diagnosis and Disposition been Completed?: Yes Diagnosis: Asthma exacerbation Disposition: HOSPITALIZED Disposition Time: 15:40 Patient Plan: Admission Patient Problems: Current Active Problems Problem Status Onset Asthma exacerbation Acute Condition: FAIR
--- NOTE | 2018-02-07 16:38 | CARD ---
APPROVED REPORT EKG Measurement Heart [id number] <Conclusion> Normal sinus rhythm Normal ECG
[2018-02-07] MEDS ORDERED: Apap-Butalbital-Caffeine 325-50-40mg Tab PO PRN (17:59)
[2018-02-07] MEDS ORDERED: Albuterol-Ipratrop 3 mg / 0.5 (3 ml) UD IH PRN (18:00)
[2018-02-07 18:12] VITALS: BMI 44.9
[2018-02-07] MEDS: MethylPREDNISolone 40 mg Vial IV SCH (21:11)
--- NOTE | 2018-02-07 23:52 | HP ---
HISTORY OF PRESENT ILLNESS: The patient is 62 years old, morbidly obese female who was seen in the office last week with cough, congestion, wheezing. She was given course of Levaquin and Medrol Dosepak. Apparently, her condition got worse. She was still wheezing and was coughing, having chest discomfort upon coughing. Did not have a fever. The patient was admitted in [facility] almost a month ago. At that point, she was found to have pneumonia. The patient denies any nausea. Does complain of decreased appetite. Complained of productive cough. Complained of headache and stuffy nose. PAST MEDICAL HISTORY: Significant for, 1. Asthma. 2. Morbid obesity. 3. Seasonal allergy. 4. History of gastritis. ALLERGIES: SHE IS ALLERGIC TO, 1. HYDROCODONE. 2. IODINE. 3. OXYCODONE . SOCIAL HISTORY: No history of smoking, drinking or alcohol use. Social drinks here and there on parties. FAMILY HISTORY: Not relevant. MEDICATIONS AT HOME: She is on Prevacid 30 mg daily. She takes albuterol. She was recently given Levaquin and Sonia. PHYSICAL EXAMINATION: GENERAL: She is awake, alert, oriented, communicative. VITAL SIGNS: She is afebrile, pulse 70, respirations 18, blood pressure 127/84. LUNGS: Bilateral expiratory rhonchi. HEART: S1 and S2 audible. ABDOMEN: Soft. Nontender. Obese. No hepatosplenomegaly. NEUROLOGICAL: She is awake, alert, oriented, communicative. LABORATORY EXAM: WBC is 10, hemoglobin 14, hematocrit 42, platelet of 262. PT 11.3, INR 0.99. Chemistry: Sodium 141, potassium 4.4, chloride 100, CO2 of 32, BUN 14, creatinine 0.7, blood sugar of 105, AST 25, ALT 58, alk phos 79, LDH is 466. Urinalysis is unremarkable. X-ray chest is negative. EKG shows normal sinus rhythm and x-ray chest shows linear discoid-like atelectasis. No significant consolidation. ASSESSMENT: 1. Asthma exacerbation. 2. Asthmatic bronchitis. 3. Morbid obesity. 4. Hypertension. 5. Allergic bronchitis. PLAN: The patient will be admitted. We will start her on IV steroid. Start her on nebulizer treatment. I will order for CT scan of the chest to rule out underlying pneumonia. Start her on Levaquin. We will follow up this patient in the a.m. Tiago Owen MD
[2018-02-08] MEDS: Albuterol-Ipratrop 3 mg / 0.5 (3 ml) UD IH SCH ×4 (01:40→19:54)
[2018-02-08] MEDS: MethylPREDNISolone 40 mg Vial IV SCH ×3 (05:37→21:19)
[2018-02-08] MEDS: Pantoprazole 40 mg EC Tab PO SCH (05:37)
--- NOTE | 2018-02-08 10:43 | CT ---
PROCEDURE: CT Chest without contrast HISTORY: sob COMPARISON: None. TECHNIQUE: Contiguous axial images were obtained through the chest without intravenous contrast enhancement. Sagittal and coronal reconstructions were performed. Radiation dose (DLP): 1072 mGy-cm. This CT exam was performed using one or more of the following dose reduction techniques: Automated exposure control, adjustment of the mA and/or kV according to patient size, and/or use of iterative reconstruction technique. FINDINGS: LUNGS: There is some linear atelectasis in both lower lobes. The lungs are otherwise clear MEDIASTINUM: Unremarkable thoracic aorta. No aneurysm. Normal sized heart. Main pulmonary artery unremarkable. No vascular congestion. No lymphadenopathy. PLEURA: No pleural fluid. No pneumothorax. BONES: No fracture. No destructive lesion. UPPER ABDOMEN: Grossly unremarkable. OTHER FINDINGS: None. IMPRESSION: Linear atelectasis in both lower lobes. The lungs are otherwise clear
[2018-02-08] MEDS: levoFLOXacin 750 mg in D5W 150 ML BAG IVPB SCH (10:45)
[2018-02-08] MEDS: Naproxen 550 mg Tab PO SCH ×2 (13:07→17:27)
--- NOTE | 2018-02-08 15:04 | PN ---
DATE: 02/08/2018 SUBJECTIVE: The patient is 62 years old, seen and examined, complained of chest pain that radiates toward her jaws and her arms. She states her shortness of breath and cough seem to be a little better. Denies any nausea or vomiting. OBJECTIVE: VITAL SIGNS: She is afebrile, pulse 67, respirations 19, blood pressure 120/69. LUNGS: Bilateral good airflow. No rhonchi or crackle. HEART: S1, S2 audible. ABDOMEN: Soft, nontender. No rebound, no guarding. NEUROLOGICAL: The patient is awake and alert, communicative, ambulatory. LABORATORY EXAM: Two sets of troponin are negative. Urine cultures are negative. CT scan of the chest was done that shows linear atelectasis in both lower lungs, otherwise lungs are clear. ASSESSMENT: 1. Asthma exacerbation. 2. Asthmatic bronchitis. 3. Chest pain, rule out coronary artery disease. 4. Morbid obesity. 5. History of gastritis. PLAN: I will request Dr. Guerrero to evaluate the chest pain. The patient had last stress test done in remote past. We will request Dr. Dugan since he had seen the patient in August with similar complaints. We will continue on IV steroid and nebulizer treatment for now and I will give her some antiinflammatory. Tiago Owen MD
--- NOTE | 2018-02-08 23:52 | CARD ---
APPROVED REPORT EKG Measurement Heart [id number] <Conclusion> Normal sinus rhythm Incomplete right bundle branch block Prolonged QT Abnormal ECG
[2018-02-09] MEDS: Albuterol-Ipratrop 3 mg / 0.5 (3 ml) UD IH SCH ×4 (00:59→20:35)
[2018-02-09] MEDS: Pantoprazole 40 mg EC Tab PO SCH (05:33)
[2018-02-09] MEDS: MethylPREDNISolone 40 mg Vial IV SCH ×3 (05:33→21:12)
[2018-02-09 07:19] VITALS: RESP 20
[2018-02-09] MEDS: Naproxen 550 mg Tab PO SCH ×2 (09:26→17:57)
[2018-02-09] MEDS: levoFLOXacin 750 mg in D5W 150 ML BAG IVPB SCH (09:26)
--- NOTE | 2018-02-09 15:13 | CARD ---
APPROVED REPORT EXAM: Two-dimensional and M-mode echocardiogram with Doppler and color Doppler. INDICATION Chest Pain 2D DIMENSIONS Left Atrium (2D)4.5 (1.6-4.0cm)IVSd0.9 (0.7-1.1cm) LVDd4.9 (3.9-5.9cm)PWd1.1 (0.7-1.1cm) LVDs3.0 (2.5-4.0cm)FS (%) 37.5 % LVEF (%)67.4 (>50%) M-Mode DIMENSIONS Aortic Root3.40 (2.2-3.7cm)Aortic Cusp Exc.2.00 (1.5-2.0cm) Aortic Valve AoV Peak Diaxttfc012.0cm/Lidya Peak GR.14mmHgLVOT Peak Udnpgvpo776.0cm/s LVOT VTI31.40cm Mitral Valve MV E Iduhhhzw52.0cm/sMV A Knrlsjnj603.0cm/sE/A ratio0.7 TDI Lateral E' Peak V7.80cm/sMedial E' Peak V7.02cm/sE/Lateral E'10.6 E/Medial E'11.8 Pulmonary Valve PV Peak Jlycodkg750.0cm/sPV Peak Grad.7mmHg Tricuspid Valve TR Peak Qchnxmja377ja/sRAP CGYCJLXY59iwVdMP Peak Gr.11mmHg MUMX21phSk LEFT VENTRICLE The left ventricle is normal size. There is normal left ventricular wall thickness. The left ventricular function is normal. The left ventricular ejection fraction is within the normal range. There is normal LV segmental wall motion. Transmitral Doppler flow pattern is Grade I-abnormal relaxation pattern. RIGHT VENTRICLE The right ventricle is normal size. There is normal right ventricular wall thickness. The right ventricular systolic function is normal. ATRIA The left atrium is borderline dilated. The right atrium size is normal. AORTIC VALVE The aortic valve is mildly thickened. There is trace aortic regurgitation. MITRAL VALVE The mitral valve is normal in structure. There is no mitral valve regurgitation noted. TRICUSPID VALVE The tricuspid valve is normal in structure. There is trace to mild tricuspid regurgitation. PULMONIC VALVE The pulmonary valve is normal in structure. There is trace to mild pulmonic valvular regurgitation. GREAT VESSELS The aortic root is normal in size. PERICARDIAL EFFUSION There is no pericardial effusion. <Conclusion> The left ventricle is normal size. There is normal left ventricular wall thickness. The left ventricular function is normal. The left ventricular ejection fraction is within the normal range. There is normal LV segmental wall motion. Transmitral Doppler flow pattern is Grade I-abnormal relaxation pattern.
[2018-02-09] MEDS ORDERED: MethylPREDNISolone 40 mg Vial IV SCH (22:00)
[2018-02-10] MEDS: Albuterol-Ipratrop 3 mg / 0.5 (3 ml) UD IH SCH ×3 (01:35→13:17)
[2018-02-10] MEDS: Pantoprazole 40 mg EC Tab PO SCH (05:48)
[2018-02-10] MEDS: MethylPREDNISolone 40 mg Vial IV SCH (05:48)
[2018-02-10 07:41] VITALS: BP 132/73; PULSE 72; TEMP 98; O2SAT 94
[2018-02-10] MEDS: Naproxen 550 mg Tab PO SCH (09:44)
[2018-02-10] MEDS ORDERED: levoFLOXacin 750 MG TAB PO SCH (10:00)
--- NOTE | 2018-02-10 19:43 | CON ---
DATE: 02/10/2018 CARDIOLOGY CONSULTATION HISTORY OF PRESENT ILLNESS: The patient is a 62-year-old woman who presents with an asthmatic attack. She also complains of substernal chest pain when she exerts herself. PAST MEDICAL HISTORY: The patient's past medical history is notable for history of longstanding asthma. No hypertension, no diabetes mellitus. No previous cardiac history noted. SOCIAL HISTORY: The patient does not smoke. REVIEW OF SYSTEMS: Fourteen-point review of systems is notable for her dyspnea which has been attributed to her asthma as well as occasional chest discomfort. PHYSICAL EXAMINATION: GENERAL: The patient is an obese woman, in no acute distress. VITAL SIGNS: Blood pressure is 132/73, the heart rates in the 70s. NECK: Negative JVD. LUNGS: Bilateral rhonchi with minimal expiratory wheezing. HEART: Reveals S1, S2. EXTREMITIES: Without edema. LABORATORY DATA: EKG is unremarkable. Hemoglobin is 14.1. Chemistries reveal troponins that are negative x2. Echocardiogram reveals normal LV function, no pulmonary hypertension is noted. IMPRESSION: 1. Bronchospasm. 2. Longstanding asthma. 3. Obesity. 4. Atypical chest pain. 5. No evidence for acute coronary syndrome. PLAN: Given these findings, I have discussed with the patient about her results. We will arrange for outpatient followup as well as an outpatient stress test once her bronchospasm is under control. Joshua Dugan MD
--- NOTE | 2018-02-12 09:10 | PN ---
DATE: 02/10/2018 FOLLOWUP NOTE HISTORY OF PRESENT ILLNESS: Ms. Le came to the hospital with COPD exacerbation. She completed the course of Levaquin and Medrol Dosepak relief. She is currently getting bronchodilators and antibiotics. CAT scan of the chest was done to rule out pneumonia. She has a history of gastritis, no current symptoms. History of seasonal allergies. No new complaints. PAST MEDICAL HISTORY: Asthma, morbid obesity, allergies, history of gastritis. ALLERGIES: TO HYDROCODONE, IODINE, OXYCODONE. PERSONAL HISTORY: No history of smoking. No history of drug abuse. SOCIAL HISTORY: Lives at home. FAMILY HISTORY: Noncontributory. HOME MEDICATIONS: Prevacid 30 mg, albuterol, Levaquin and Sonia. PHYSICAL EXAMINATION: GENERAL: Comfortable in bed, in no acute distress. VITAL SIGNS: Temperature 98.7, heart rate per minute, blood pressure 120/70. HEENT: Pallor positive. NECK: No lymphadenopathy. CHEST: Air entry present and equal bilaterally. No added sounds. CARDIOVASCULAR: S1 and S2 normal. No murmur. No gallop. ABDOMEN: Soft, nontender. No hepatosplenomegaly. EXTREMITIES: No edema. CENTRAL NERVOUS SYSTEM: Alert and oriented x3. No focal sensory or motor deficits. SKIN: No petechiae. No rash. LABORATORY DATA: White count 10, hemoglobin 14, hematocrit 42, platelet 262. Creatinine 0.7. ASSESSMENT: 1. Chronic obstructive pulmonary disease exacerbation. 2. Morbid obesity. 3. Allergic rhinitis. 4. Chest pain. PLAN: We will continue bronchodilators, Xanax 0.5 mg t.i.d., Levaquin currently on oral 750 daily, Solu-Medrol 40 mg every 8 hours, naproxen p.r.n., Protonix 40 mg daily. We will continue to monitor clinical course. We will do discharge planning when stable. June De La Torre MD
--- NOTE | 2018-02-12 09:21 | PN ---
DATE: 02/09/2018 SUBJECTIVE: The patient is a 62-year-old. The patient states she is doing well. States she is doing much better. Her shortness of breath and cough are better. She hade one episode of chest pain last night, but has been doing well. PHYSICAL EXAMINATION: GENERAL: She is awake and alert, able to communicate. VITAL SIGNS: The patient is afebrile, pulse 71, respirations 20, blood pressure 120/69. LUNGS: Bilateral fair airflow. No rhonchi or crackles. HEART: S1 and S2 audible. ABDOMEN: Soft, obese, nontender. No rebound. No guarding. NEUROLOGICAL: She is awake, alert, oriented, communicative. LABORATORY DATA: Her echocardiogram is unremarkable. CT scan of the chest shows basal atelectasis. ASSESSMENT: 1. Asthmatic bronchitis. 2. Pleuritic chest pain. 3. Gastritis. 4. Failed outpatient treatment. PLAN: We will continue the patient on nebulizer treatment, continue on Levaquin. We will keep her on PPI. We will cut down her steroids to 40 every 12 hours and Xanax as needed and if the patient remains stable, possible discharge in a.m. on tapering dose of steroids, she already has prescription for Levaquin. She will take Naprosyn for 2 to 3 more days until her cough subsides and I will see her as outpatient. Tiago Owen MD
== END 2018-02-10 14:25 | disposition home or self-care (01) | DRG 202 ==
LOC: ED 12:23 → ERH 15:31 → 3RNO 17:21
PROVIDERS: ADMIT Internal Medicine; ATTEND Internal Medicine
DX: J45.901 Unspecified asthma with (acute) exacerbation (principal); J18.9 Pneumonia, unspecified organism; J44.0 Chronic obstructive pulmonary disease with (acute) lower respiratory infection; J44.1 Chronic obstructive pulmonary disease with (acute) exacerbation; Z68.41 Body mass index [BMI] 40.0-44.9, adult; I10 Essential (primary) hypertension; K21.9 Gastro-esophageal reflux disease without esophagitis; K29.70 Gastritis, unspecified, without bleeding; E66.01 Morbid (severe) obesity due to excess calories; Z87.01 Personal history of pneumonia (recurrent); Z87.440 Personal history of urinary (tract) infections; Z90.49 Acquired absence of other specified parts of digestive tract; J30.2 Other seasonal allergic rhinitis; Z88.5 Allergy status to narcotic agent; Z88.8 Allergy status to other drugs, medicaments and biological substances; R07.2 Precordial pain

== ENCOUNTER 2018-08-24 19:51 | Emergency (ER) | payer BC ==
[2018-08-24 19:51] VITALS: BMI 44.9
[2018-08-24 19:56] VITALS: RESP 18
--- NOTE | 2018-08-24 20:26 | ED PDOC ---
Arrival/HPI - General Chief Complaint: Abdominal Pain Time Seen by Provider: 08/24/18 20:09 Historian: Patient - History of Present Illness Narrative History of Present Illness (Text): 08/24/18 20:19 63 year old female, whose past medical history includes TIA, asthma, anxiety and panic attacks, cholecystecomy, GERD, and allergic to iodine contrast, presents to the emergency department with epigastric pain, for 2 weeks. Patient states pain feels like burning and extreme bloating in her abdomen. Patient informs pain feels different than her normal GERD symptoms. Patient states she saw her PMD 2 weeks ago, and was prescribed pantoprazole 40mg. Patient states pain became unbearable today, and radiates to the right side of her abdomen. Patient informs having melena recently. Patient denies any smoking or drinking. Abraham neo also denies any fevers, chills, nausea, vomiting, diarrhea, dysuria, or any other complaint. Time/Duration: > week (2 weeks) Symptom Onset: Gradual Symptom Course: Unchanged Quality: Burning, Fullness Activities at Onset: Light Past Medical History - Provider Review Nursing Documentation Reviewed: Yes - Past History Past History: Non-Contributing - Infectious Disease Hx of Infectious Diseases: None - Tetanus Immunization Tetanus Immunization: Unknown - Reproductive Menopause: No - Cardiac Hx Cardiac Arrhythmia: Yes - Pulmonary Hx Asthma: Yes Hx Bronchitis: Yes Hx Pneumonia: Yes - Neurological Hx Migraine: Yes - HEENT Hx HEENT Disorder: No - Renal Hx Renal Disorder: No - Endocrine/Metabolic Hx Endocrine Disorders: No - Hematological/Oncological Hx Blood Disorders: No - Integumentary Hx Dermatological Disorder: No - Musculoskeletal/Rheumatological Hx Musculoskeletal Disorders: No Hx Falls: No - Gastrointestinal Hx Gastroesophageal Reflux: Yes - Genitourinary/Gynecological Hx Urinary Tract Infection: Yes - Psychiatric Hx Anxiety: Yes Hx Depression: Yes Hx Substance Use: No - Surgical History Hx Cholecystectomy: Yes - Anesthesia Hx Anesthesia: Yes Hx Anesthesia Reactions: No Hx Malignant Hyperthermia: No - Suicidal Assessment Feels Threatened In Home Enviroment: No Family/Social History - Physician Review Nursing Documentation Reviewed: Yes Family/Social History: No Known Family HX Smoking Status: Never Smoked Hx Alcohol Use: No Hx Substance Use: No Hx Substance Use Treatment: No Allergies/Home Meds Allergies/Adverse Reactions: Allergies hydrocodone Allergy (Severe, Verified 08/24/18 19:57) ANAPHYLAXIS Iodine and Iodide Containing Produc Allergy (Severe, Verified 08/24/18 19:57) ANAPHYLAXIS oxycodone Allergy (Severe, Verified 08/24/18 19:57) ANAPHYLAXIS Penicillins Allergy (Severe, Verified 08/24/18 19:57) ANAPHYLAXIS shellfish derived Allergy (Severe, Verified 08/24/18 19:57) ANAPHYLAXIS iodine Allergy (Verified 08/24/18 19:57) ANAPHYLAXIS SEAFOOD Allergy (Severe, Uncoded 08/24/18 19:57) ANAPHYLAXIS seafood Allergy (Severe, Uncoded 08/24/18 19:57) ANAPHYLAXIS Home Medications: Home Meds Medication Instructions Recorded Confirmed Albuterol HFA [Ventolin HFA 90 1 inh INH PRN PRN 09/11/17 08/24/18 mcg/actuation (8 g)] Pantoprazole [Protonix EC Tab] 40 mg PO DAILY 08/24/18 08/24/18 Review of Systems - Physician Review All systems were reviewed & negative as marked: Yes - Review of Systems Constitutional: absent: Fevers, Night Sweats Gastrointestinal: Abdominal Pain, Stool Changes (Black stool). absent: Constipation, Diarrhea, Nausea Genitourinary Female: absent: Dysuria Physical Exam Vital Signs Reviewed: Yes Vital Signs Temp Pulse Resp BP Pulse Ox 08/24/18 19:52 97.5 F L 73 18 127/84 97 Temperature: Afebrile Blood Pressure: Normal Pulse: Regular Respiratory Rate: Normal Appearance: Positive for: Well-Appearing, Non-Toxic, Comfortable Pain Distress: None Mental Status: Positive for: Alert and Oriented X 3 - Systems Exam Head: Present: Atraumatic, Normocephalic Pupils: Present: PERRL Extroacular Muscles: Present: EOMI Conjunctiva: Present: Normal Mouth: Present: Moist Mucous Membranes Neck: Present: Normal Range of Motion Respiratory/Chest: Present: Clear to Auscultation, Good Air Exchange. No: Respiratory Distress, Accessory Muscle Use Cardiovascular: Present: Regular Rate and Rhythm, Normal S1, S2. No: Murmurs Abdomen: Present: Tenderness (Epigastric pain). No: Distention, Peritoneal Signs Back: Present: Normal Inspection Upper Extremity: Present: Normal Inspection. No: Cyanosis, Edema Lower Extremity: Present: Normal Inspection. No: Edema Neurological: Present: GCS=15, CN II-XII Intact, Speech Normal Skin: Present: Warm, Dry, Normal Color. No: Rashes Psychiatric: Present: Alert, Oriented x 3, Normal Insight, Normal Concentration Medical Decision Making ED Course and Treatment: 08/24/18 20:29 Impression: 63 year old female presents with epigastric pain Plan: -- CT ABD& Pelvis -- EKG -- CMP, Lipase -- CBC -- Tylenol -- Ativan -- Urinalysis -- Reassess and disposition Prior Visits: Notes and results from previous visits were reviewed. Progress Notes: 08/24/18 20:31 EKG reviewed by me, shows: Normal sinus rhythm @ 68bpm No STEMI 08/24/18 21:49 CT of the abdomen and pelvis without contrast Clinical statement: Pain. Technique: Multiple axial CT images were obtained from the base of the lungs to the floor of the pelvis utilizing 5 mm axial slices without administration of contrast. Coronal and sagittal reconstructions were also obtained. Comparison: None. Findings: Chest: The visualized lung bases are clear. Abdomen: The kidneys are normal in size bilaterally. There is no evidence of hydronephrosis or nephrolithiasis. The liver, spleen, pancreas, and adrenal glands are unremarkable. The aorta demonstrates normal caliber and contour. There is no abdominal lymphadenopathy or ascites. Pelvis: The bowel is unremarkable, with no obstructive or inflammatory changes. There is diffuse diverticulosis noted involving sigmoid colon. No evidence of acute diverticulitis.The appendix is normal. The urinary bladder is within normal limits. There is no pelvic lymphadenopathy or ascites. The other pelvic structures appear unremarkable. Bones: There are no suspicious osseous abnormalities seen. Impression: No acute abdominal or pelvic pathology. 08/24/18 23:04 labs unremarkable Pt notes she does not want guaic exam: I explained need given dark stool. She notes she still does not need it Given potential +guaic, will rx as so- pt however already on PPI: protonix 40mg a day, informed pt to f/u regarding possible GI bleed, she is agreeable UA+ will rx given abd pain - RAD Interpretation Radiology Orders: 08/24/18 20:17 ABD & PELVIS W/O PO OR IV CONT [CT] Stat - Scribe Statement The provider has reviewed the documentation as recorded by the Marlinibsonja Degroot Provider Scribe Attestation: All medical record entries made by the Scribe were at my direction and personally dictated by me. I have reviewed the chart and agree that the record accurately reflects my personal performance of the history, physical exam, medical decision making, and the department course for this patient. I have also personally directed, reviewed, and agree with the discharge instructions and disposition. Disposition/Present on Arrival - Present on Arrival Any Indicators Present on Arrival: No History of DVT/PE: No History of Uncontrolled Diabetes: No Urinary Catheter: No History of Decub. Ulcer: No History Surgical Site Infection Following: None - Disposition Have Diagnosis and Disposition been Completed?: Yes Diagnosis: UTI (urinary tract infection), Dark stools Disposition: HOME/ ROUTINE Disposition Time: 23:05 Condition: GOOD Discharge Instructions (ExitCare): Urinary Tract Infections in Adults Additional Instructions: FOLLOW UP WITH YOUR PRIMARY CARD DOCTOR AND A STOMACH DOCTOR WE HAVE RECCOMENDED FOR YOU. OR ONE YOUR PRIMARY RECCOMENDS. ABBIE OLIVER, thank you for letting us take care of you today. Your provider was Christiano Marks and you were treated for ABD PAIN. The emergency medical care you received today was directed at your acute symptoms. If you were prescribed any medication, please fill it and take as directed. It may take several days for your symptoms to resolve. Return to the Emergency Department if your symptoms worsen, do not improve, or if you have any other problems. Please contact your doctor or call one of the physicians/clinics you have been referred to that are listed on the Patient Visit Information form that is included in your discharge packet. Bring any paperwork you were given at discharge with you along with any medications you are taking to your follow up visit. Our treatment cannot replace ongoing medical care by a primary care provider outside of the emergency department. Thank you for allowing the [facility] team to be part of your care today. If you had an X-Ray or CT scan: A Radiologist will review the ED reading if any change in treatment is needed we will contact you. If you had a blood, urine, or wound culture: It will take several days for the results, if any change in treatment is needed we will contact you. If you had an STI test: It will take 48 hours for the results. Please call after 1 week if you have not heard back. Prescriptions: Nitrofurantoin Macrocrystal [Nitrofurantoin] 100 mg PO BID 5 Days #10 capsule Referrals: Tiago Owen MD [Primary Care Provider] - Follow up with primary Tu Solis DO [Staff Provider] - Follow up with primary Forms: [email or web address] (Tunisian)
[2018-08-24] MEDS ORDERED: Sodium Chloride 0.9% 1,000 ML IV SCH (20:30)
[2018-08-24 20:38] LABS: BASO # 0.02 K/mm3 (0.0-2.0); BASO % 0.3 % (0.0-3.0); EOS # 0.2 (0.0-0.7); EOS % 2.1 % (1.5-5.0); GRAN # 3.92 (1.4-6.5); GRAN % 52.4 % (50.0-68.0); HEMOGLOBIN 13.9 g/dL (12.0-16.0); LYMPH # 2.7 (1.2-3.4); LYMPH % 36.6 % (22.0-35.0); MEAN CELL VOLUME 80.7 fl (80.0-105.0); MEAN CORPUSCULAR HEMOGLOBIN 26.8 pg (25.0-35.0); MEAN CORPUSCULAR HGB CONC 33.3 g/dl (31.0-37.0); MEAN PLATELET VOLUME 9.9 fl (7.0-11.0); MONO # 0.6 (0.1-0.6); MONO % 8.6 % (1.0-6.0); RBC 5.18 10^6/uL (3.5-6.1); RED CELL DISTRIBUTION WIDTH 13.6 % (11.5-14.5); WHITE BLOOD COUNT 7.5 10^3/uL (4.5-11.0)
[2018-08-24 20:53] LABS: ALB/GLOB RATIO 1.2 (1.1-1.8); ALBUMIN 3.8 g/dL (3.0-4.8); ALT/SGPT 29 U/L (7-56); AST/SGOT 24 U/L (14-36); BLOOD UREA NITROGEN 11 mg/dL (7-21); CALCIUM 9.3 mg/dL (8.4-10.5); GFR NON-AFRICAN AMERICAN > 60; LIPASE 24 U/L (23-300)
[2018-08-24 22:16] LABS: URINE BILIRUBIN NEGATIVE (NEGATIVE); URINE BLOOD NEGATIVE (NEGATIVE); URINE GLUCOSE (UA) NEGATIVE (NEGATIVE); URINE LEUKOCYTE ESTERASE SMALL Leu/uL (NEGATIVE); URINE PROTEIN NEGATIVE mg/dL (<30 mg/dL); URINE UROBILINOGEN 0.2 E.U./dL (<1 E.U./dL)
[2018-08-24 22:19] LABS: URINE APPEARANCE CLEAR (CLEAR)
[2018-08-24 22:23] VITALS: BP 125/70; PULSE 68; O2SAT 98
[2018-08-24 22:26] VITALS: TEMP 97.7
--- NOTE | 2018-08-25 11:50 | CT ---
Date of service: 08/24/2018 PROCEDURE: CT Abdomen and Pelvis without intravenous contrast HISTORY: epigastric pain, allergic to contrast COMPARISON: CT scan of the abdomen pelvis dated 10/25/2015. TECHNIQUE: Contiguous images were obtained from the domes of the diaphragms to the upper thighs without the administration of intravenous contrast. Oral contrast was not administered. Radiation dose: Total exam DLP = 1128.86 mGy-cm. This CT exam was performed using one or more of the following dose reduction techniques: Automated exposure control, adjustment of the mA and/or kV according to patient size, and/or use of iterative reconstruction technique. FINDINGS: LOWER THORAX: Cardiomegaly. LIVER: Hepatic steatosis. No gross lesion or ductal dilatation. GALLBLADDER AND BILE DUCTS: Prior cholecystectomy with surgical clips in place. PANCREAS: Mild fatty replacement. No gross lesion or ductal dilatation. SPLEEN: Unremarkable. ADRENALS: Unremarkable. No mass. KIDNEYS AND URETERS: Unremarkable. No hydronephrosis. No solid mass. VASCULATURE: Unremarkable. No aortic aneurysm. No aortic atherosclerotic calcification or mural plaque present. BOWEL: Colonic diverticulosis. No obstruction. No gross mural thickening. APPENDIX: Unremarkable. Normal appendix. PERITONEUM: Prior right abdominal wall hernia repair with mesh. No free fluid. No free air. LYMPH NODES: Unremarkable. No enlarged lymph nodes. BLADDER: Unremarkable. REPRODUCTIVE: Unremarkable. BONES: L1 vertebral body hemangioma. Spinal degenerative changes. No acute fracture. OTHER FINDINGS: None. IMPRESSION: No acute abdominal pelvic pathology. Stable findings as above.
--- NOTE | 2018-08-25 23:09 | CARD ---
APPROVED REPORT Date of service: 08/24/2018 EKG Measurement Heart [id number] <Conclusion> Normal sinus rhythm Normal ECG
== END 2018-08-24 23:32 | disposition home or self-care (01) ==
LOC: ED 19:51
DX: N39.0 Urinary tract infection, site not specified (principal); R19.5 Other fecal abnormalities
CPT/HCPCS: 74176; 80053; 81001; 83690; 85025; 87086; 93005; 96374; 99283; J2060; J7030

== ENCOUNTER 2018-10-22 16:03 | Observation (INO) | payer BC ==
[2018-10-22 16:03] VITALS: BMI 44.9
[2018-10-22] MEDS ORDERED: Albuterol-Ipratrop 3 mg / 0.5 (3 ml) UD IH STA (16:26)
--- NOTE | 2018-10-22 16:33 | ED PDOC ---
Arrival/HPI - General Chief Complaint: Chest Pain Time Seen by Provider: 10/22/18 16:10 Historian: Patient - History of Present Illness Narrative History of Present Illness (Text): 63 yr old F w/ hx of TIA, Asthma, arthritis, GERD p/w chest pain. Pt notes chest pain started this morning at 1100, throbbing, right side of chest, without radiation, first time occurence. She notes chest pain has continued since then. She denies any fall or trauma. She notes a recent cough, but no recent fever, chills or night sweats. No abdominal pain. No GI or complaints. No rashes. She denies any leg swelling, trauma or falls. No recent surgeries. She notes that her symptoms do not feel like her previous asthma exacerbations or her GERD. No other complaints Past Medical History - Past History Past History: Non-Contributing - Infectious Disease Hx of Infectious Diseases: None - Tetanus Immunization Tetanus Immunization: Unknown - Reproductive Menopause: Yes - Cardiac Hx Cardiac Arrhythmia: Yes - Pulmonary Hx Asthma: Yes Hx Bronchitis: Yes Hx Pneumonia: Yes - Neurological Hx Migraine: Yes - HEENT Hx HEENT Disorder: No - Renal Hx Renal Disorder: No - Endocrine/Metabolic Hx Endocrine Disorders: No - Hematological/Oncological Hx Blood Disorders: No - Integumentary Hx Dermatological Disorder: No - Musculoskeletal/Rheumatological Hx Musculoskeletal Disorders: No Hx Falls: No - Gastrointestinal Hx Gastroesophageal Reflux: Yes - Genitourinary/Gynecological Hx Urinary Tract Infection: Yes - Psychiatric Hx Anxiety: Yes Hx Depression: Yes Hx Substance Use: No - Surgical History Hx Cholecystectomy: Yes - Anesthesia Hx Anesthesia: Yes Hx Anesthesia Reactions: No Hx Malignant Hyperthermia: No - Suicidal Assessment Feels Threatened In Home Enviroment: No Family/Social History Family/Social History: Unknown Family HX Smoking Status: Never Smoked Hx Alcohol Use: No Hx Substance Use: No Hx Substance Use Treatment: No Allergies/Home Meds Allergies/Adverse Reactions: Allergies hydrocodone Allergy (Severe, Verified 08/24/18 19:57) ANAPHYLAXIS Iodine and Iodide Containing Produc Allergy (Severe, Verified 08/24/18 19:57) ANAPHYLAXIS oxycodone Allergy (Severe, Verified 08/24/18 19:57) ANAPHYLAXIS Penicillins Allergy (Severe, Verified 08/24/18 19:57) ANAPHYLAXIS shellfish derived Allergy (Severe, Verified 08/24/18 19:57) ANAPHYLAXIS iodine Allergy (Verified 08/24/18 19:57) ANAPHYLAXIS SEAFOOD Allergy (Severe, Uncoded 08/24/18 19:57) ANAPHYLAXIS seafood Allergy (Severe, Uncoded 08/24/18 19:57) ANAPHYLAXIS Home Medications: Home Meds Medication Instructions Recorded Confirmed Albuterol HFA [Ventolin HFA 90 1 inh INH PRN PRN 09/11/17 10/22/18 mcg/actuation (8 g)] Dexlansoprazole [Dexilant] 0 mg PO DAILY 10/22/18 10/22/18 Montelukast [Singulair] 10 mg PO DAILY 10/22/18 10/22/18 Review of Systems - Review of Systems Constitutional: absent: Fatigue, Weight Change Eyes: absent: Vision Changes, Photophobia, Eye Pain ENT: absent: Hearing Changes, Tinnitus Respiratory: absent: SOB, Cough Cardiovascular: Chest Pain. absent: Palpitations, Edema Gastrointestinal: absent: Abdominal Pain, Stool Changes, Constipation, Diarrhea, Nausea, Vomiting, Appetite Changes, Hematochezia, Hematemesis Genitourinary Female: absent: Dysuria, Frequency, Hematuria Musculoskeletal: absent: Arthralgias, Back Pain Skin: absent: Rash, Pruritis Neurological: absent: Headache Hemo/Lymphatic: absent: Adenopathy Physical Exam Vital Signs Reviewed: Yes Vital Signs Temp Pulse Resp BP Pulse Ox 10/22/18 16:20 98.1 F 71 17 154/88 H 96 Temperature: Afebrile Blood Pressure: Hypertensive Pulse: Regular Respiratory Rate: Normal Appearance: Positive for: Well-Appearing Mental Status: Positive for: Alert and Oriented X 3 - Systems Exam Head: Present: Atraumatic, Normocephalic Pupils: Present: PERRL Extroacular Muscles: Present: EOMI Conjunctiva: Present: Normal Ears: Present: Normal, NORMAL TM Mouth: Present: Moist Mucous Membranes, Dry Pharnyx: Present: Normal. No: ERYTHEMA, EXUDATE Nose (External): Present: Atraumatic Nose (Internal): Present: Normal Inspection Neck: Present: Normal Range of Motion Respiratory/Chest: Present: Clear to Auscultation, Good Air Exchange Cardiovascular: Present: Regular Rate and Rhythm, Normal S1, S2 Abdomen: Present: Normal Bowel Sounds. No: Tenderness, Distention, Peritoneal Signs, Rebound, Guarding Upper Extremity: Present: Normal Inspection, Normal ROM, NORMAL PULSES, Neurovascularly Intact. No: Cyanosis, Edema, Tenderness, Swelling Lower Extremity: Present: Normal Inspection, NORMAL PULSES, Neurovascularly Intact. No: Edema, Swelling Neurological: Present: GCS=15, CN II-XII Intact, Speech Normal Skin: Present: Warm, Dry Psychiatric: Present: Alert, Oriented x 3 Medical Decision Making ED Course and Treatment: 63 yr old female w/ hx of arthritis, asthma, gerd, tia p/w chest pain. Likely moderate heart score given age and risk factors. Low pretest wells, will seek dimer to r/ out PE. No friction rub or jvd noted on exam. Pending imaging and labs. 10/22/18 18:35 EK, nsr, no stemi Labs largely unremarkable Pending V/Q study Appreciate consult w/ Dr. Owen- accepts admission pt in [facility]. 10/22/18 18:42 Chest X-ray reviewed by radiologist, shows no active pulmonary disease. 10/22/18 19:40 pt refused VQ study. I endorsed possible or disability without study. Pt notes she does not want the scan. She denies any dark or bloody stool or spontaneous bleeds appreciate consult w/ Pharmacy: 1mg /kg including 120 mg appropriate for possible PE Appreciate consult w/ Dr. Owen: to admit to her service Pt in [facility], agreeable to plan. - RAD Interpretation Radiology Orders: 10/22/18 16:26 CHEST TWO VIEWS (PA/LAT) [RAD] Stat Composition [employer] Applier: Radiologist - Medication Orders Current Medication Orders: Albuterol/Ipratropium (Duoneb 3 Mg/0.5 Mg (3 Ml) Ud) 3 ml IH STAT STA Stop: 10/22/18 16:27 Disposition/Present on Arrival - Present on Arrival Any Indicators Present on Arrival: No History of DVT/PE: No History of Uncontrolled Diabetes: No Urinary Catheter: No History of Decub. Ulcer: No History Surgical Site Infection Following: None - Disposition Have Diagnosis and Disposition been Completed?: Yes Diagnosis: Chest pain Disposition: HOSPITALIZED Disposition Time: 19:32 Patient Problems: Current Active Problems Problem Status Onset Chest pain Acute Condition: GOOD Discharge Instructions (ExitCare): Chest Pain (ED) Forms: [employer] (Irish)
[2018-10-22 17:02] LABS: BASO # 0.01 K/mm3 (0.0-2.0); BASO % 0.2 % (0.0-3.0); EOS # 0.1 (0.0-0.7); EOS % 1.3 % (1.5-5.0); HEMOGLOBIN 14.1 g/dL (12.0-16.0); LYMPH # 2.1 (1.2-3.4); LYMPH % 32.3 % (22.0-35.0); MEAN CELL VOLUME 80.7 fl (80.0-105.0); MEAN CORPUSCULAR HGB CONC 33.5 g/dl (31.0-37.0); MEAN PLATELET VOLUME 9.5 fl (7.0-11.0); MONO # 0.5 (0.1-0.6); RBC 5.22 10^6/uL (3.5-6.1); RED CELL DISTRIBUTION WIDTH 13.7 % (11.5-14.5); WHITE BLOOD COUNT 6.4 10^3/uL (4.5-11.0)
[2018-10-22 17:21] LABS: ALBUMIN 3.9 g/dL (3.0-4.8); BLOOD UREA NITROGEN 11 mg/dL (7-21); CALCIUM 9.2 mg/dL (8.4-10.5); GFR NON-AFRICAN AMERICAN > 60
[2018-10-22 17:22] LABS: ALB/GLOB RATIO 1.2 (1.1-1.8); ALT/SGPT 24 U/L (7-56); AST/SGOT 31 U/L (14-36)
[2018-10-22 17:33] LABS: TROPONIN I < 0.01 ng/mL
--- NOTE | 2018-10-22 18:21 | RAD ---
Date of service: 10/22/2018 HISTORY: Chest pain COMPARISON: 02/07/2018. TECHNIQUE: Chest PA and lateral FINDINGS: LINES AND TUBES: None. LUNG AND PLEURA: The lungs are well inflated. There is no focal consolidation. There is linear scarring in the right lower lobe. HEART AND MEDIASTINUM: Mild cardiomegaly. No aortic atherosclerotic calcifications present. The hilar and mediastinal contours are within normal limits. SKELETAL STRUCTURES: The bony structures are within normal limits for the patient's age. VISUALIZED UPPER ABDOMEN: Normal. OTHER FINDINGS: None. IMPRESSION: No active pulmonary disease.
[2018-10-22] MEDS ORDERED: Enoxaparin 120 mg Syringe SC ONE (19:40)
[2018-10-22] MEDS: Levalbuterol 1.25 MG/3 ML Inhal Soln UD IH SCH (21:26)
[2018-10-22 22:55] LABS: HDL CHOLESTEROL 32 mg/dL (29-60)
[2018-10-22 23:06] LABS: LDL CHOLESTEROL 114 mg/dL (0-129)
[2018-10-22 23:18] LABS: TROPONIN I < 0.01 ng/mL
--- NOTE | 2018-10-22 23:31 | HP ---
DATE OF EXAM: 10/22/2018 HISTORY OF PRESENT ILLNESS: Patient is 63 years old, who came to emergency room because of chest pain, pressure like along with shortness of breath. Pain started this morning, more so on the right side. Denies any trauma to the area. She has been having intermittent cough for last few days. No history of nausea or vomiting. No fever or chills. PAST MEDICAL HISTORY: Patient has significant past medical history of; 1. Asthma. 2. Gastroesophageal reflux disease. 3. She had endoscopy done in 2016. 4. She has history of anxiety disorder. ALLERGIES: SHE IS ALLERGIC TO HYDROCODONE, IODINE CONTAINING PRODUCT, OXYCODONE, SHELL FISH, SEA FOOD. MEDICATION AT HOME: She is on Ventolin HFA. She is on Singulair 10 mg daily, Dexilant, Xanax 0.5 mg twice a day. SOCIAL HISTORY: She is . Denies smoking or drinking. No alcohol use. REVIEW OF SYSTEMS: Significant for chest discomfort and pain on the right side of the chest. PHYSICAL EXAMINATION GENERAL: She is awake, alert, oriented, able to communicate. VITAL SIGNS: She is afebrile, pulse 65, respiration 20, blood pressure 150/77. HEART: S1 and S2 audible. LUNGS: Bilateral fair airflow. No rhonchi or crackles. ABDOMEN: Soft, obese, nontender. No rebound. No guarding. NEUROLOGIC: Patient is awake, alert, oriented, communicative. LABORATORY DATA: WBC 6.4, hemoglobin 14, hematocrit 42, platelets 229. PT and D-Dimer is 260. Chemistry; sodium 141, potassium 4, chloride 105, CO2 of 28, BUN 11, creatinine 0.7, blood sugar 198. LFTs are within normal limits. She had EKG done that is unremarkable. X-ray shows no active pulmonary disease. ASSESSMENT AND PLAN: 1. Chest pain, rule out ischemia. 2. History of asthma. 3. Peptic ulcer disease. 4. Morbid obesity. 5. Anxiety disorder. Plan is, we will start her on anxiolytic. She is on Protonix. We will continue that. Follow up troponin. Request for cardiology consult. Follow up serial troponin. If patient remains stable, we will discharge in the a.m. Tiago Owen MD [facility] # [id number]
[2018-10-23] MEDS: Levalbuterol 1.25 MG/3 ML Inhal Soln UD IH SCH ×4 (02:38→20:07)
[2018-10-23 04:24] LABS: TROPONIN I < 0.01 ng/mL
[2018-10-23 05:27] LABS: ALB/GLOB RATIO 1.2 (1.1-1.8); ALBUMIN 3.5 g/dL (3.0-4.8); ALT/SGPT 25 U/L (7-56); AST/SGOT 20 U/L (14-36); BLOOD UREA NITROGEN 12 mg/dL (7-21); CALCIUM 9.2 mg/dL (8.4-10.5); GFR NON-AFRICAN AMERICAN > 60
--- NOTE | 2018-10-23 08:49 | CARD ---
APPROVED REPORT Date of service: 10/22/2018 EKG Measurement Heart [id number] <Conclusion> Normal sinus rhythm Minimal voltage criteria for LVH, may be normal variant Borderline ECG
[2018-10-23] MEDS ORDERED: Potassium Chloride 20 mEq ER Tab PO ONE (09:51)
[2018-10-23] MEDS: Pantoprazole 40 mg EC Tab PO SCH (10:31)
[2018-10-23] MEDS: Metoprolol Succinate 25 mg XL Tab PO SCH (10:31)
[2018-10-23] MEDS ORDERED: guaiFENesin DM 100 mg-10 mg/5 ml UD PO PRN (12:33)
[2018-10-23] MEDS ORDERED: cefTRIAXone 1 gm 1 GM/100 ML BAG IVPB SCH (12:45)
[2018-10-23] MEDS: MethylPREDNISolone 40 mg Vial IV SCH ×2 (14:56→21:01)
--- NOTE | 2018-10-23 15:35 | PN ---
DATE: 10/23/2018 SUBJECTIVE: The patient is 63-year-old, seen and examined, came in with chest pain more so with the cough. She Denies any fever or chills. No nausea or vomiting. She states her some family members was sick, but they were not in contact with her though. PHYSICAL EXAMINATION: VITAL SIGNS: She is afebrile. Pulse 67, respiration 20 and blood pressure 137/91. LUNGS: Bilateral occasional expiratory rhonchi. HEART: S1 and S2, audible. ABDOMEN: Soft, obese and nontender. No rebound. No guarding. NEUROLOGIC: The patient is awake, alert and able to communicate. LABORATORY DATA: Three sets of troponin is negative. EKG is unremarkable. ASSESSMENT: 1. Asthmatic chest pain. Rule out underlying coronary ischemia. 2. History of asthma. 3. Asthmatic bronchitis, probably muscular chest pain. 4. Peptic ulcer disease. 5. Anxiety disorder. PLAN: We will continue the patient on nebulizer treatment. Started on small dose of steroids since she has occasional expiratory rhonchi. She is scheduled to have stress test done in a.m. We will reevaluate the patient in a.m. Tiago Owen MD
[2018-10-23] MEDS: levoFLOXacin 500 mg in D5W 500 MG/100 ML BAG IVPB SCH (17:24)
--- NOTE | 2018-10-23 18:32 | CARD ---
APPROVED REPORT Date of service: 10/23/2018 EXAM: Two-dimensional and M-mode echocardiogram with Doppler and color Doppler. INDICATION CP/LVFX 2D DIMENSIONS Left Atrium (2D)4.3 (1.6-4.0cm)IVSd1.1 (0.7-1.1cm) LVDd4.4 (3.9-5.9cm)PWd1.1 (0.7-1.1cm) LVDs3.2 (2.5-4.0cm)FS (%) 28.0 % LVEF (%)54.4 (>50%) M-Mode DIMENSIONS Aortic Root3.60 (2.2-3.7cm)Aortic Cusp Exc.1.90 (1.5-2.0cm) Aortic Valve AoV Peak Yaiyngxa676.0cm/Lidya Peak GR.6mmHg Mitral Valve MV E Ufqwwenv63.5cm/sMV A Daxvkupc28.8cm/sE/A ratio0.8 TDI Lateral E' Peak V6.46cm/sMedial E' Peak V7.99cm/sE/Lateral E'11.4 E/Medial E'9.2 Pulmonary Valve PV Peak Mbbdzqav91.2cm/sPV Peak Grad.2mmHg Tricuspid Valve TR Peak Juidfubp273ie/sRAP [id number] Peak Gr.27mmHg [id number] LEFT VENTRICLE The left ventricle is normal size. There is normal left ventricular wall thickness. The left ventricular function is normal.Ef-55% There is normal LV segmental wall motion. Transmitral Doppler flow pattern is Grade III-reversible restrictive diastolic dysfunction. No left ventricle thrombus noted on this study. There is no ventricular septal defect visualized. There is no left ventricular aneurysm. There is no mass noted in the left ventricle. RIGHT VENTRICLE The right ventricle is normal size. There is normal right ventricular wall thickness. The right ventricular systolic function is normal. ATRIA The left atrium is mildly dilated. The right atrium size is normal. The interatrial septum is intact with no evidence for an atrial septal defect. AORTIC VALVE The aortic valve is thickened but opens well. There is trace aortic regurgitation. There is no aortic valvular stenosis. There is no aortic valvular vegetation. MITRAL VALVE The mitral valve is thickened but opens well. Mitral regurgitation is trace. There is no mitral valve stenosis. There is no evidence of mitral valve prolapse. TRICUSPID VALVE The tricuspid valve leaflets are thickened , but open well. There is trace tricuspid regurgitation.RVSP-37 mmof Hg. There is no tricuspid valve stenosis. There is no tricuspid valve prolapse or vegetation. PULMONIC VALVE The pulmonic valve is borderline thickened. There is mild to moderate pulmonic valvular regurgitation. There is no pulmonic valvular stenosis. GREAT VESSELS The aortic root is normal in size. The ascending aorta is normal in size. The pulmonary artery is normal. The IVC is normal in size and collapses >50% with inspiration. PERICARDIAL EFFUSION There is no pleural effusion. There is no pericardial effusion. <Conclusion> Normal chamber Size. EF-55% Trtace MR/TR/AR RVSP-37 mmof Hg. There is mild to moderate pulmonic valvular regurgitation. The IVC is normal in size and collapses >50% with inspiration. There is no pericardial effusion.
--- NOTE | 2018-10-23 19:24 | CON ---
DATE: 10/23/2018 REASON FOR CONSULTATION AND FOLLOWUP: Chest pain, cardiac evaluation. BRIEF CLINICAL HISTORY: This is 63-year-old morbidly obese female, body mass index 45 kg/m2, history of anxiety disorder, history of hypertension, history of gastroesophageal reflux and anxiety disorder came in with a complaint of uncontrolled hypertension and chest pain of the right side of the chest, which is tender and reproducible. Admitting blood pressure according to patient was 190/90, but here in the ER was 154/88. Denies any chest pain, but feels pain in the throat and also pain in the chest which is very tender on the right side. PAST MEDICAL HISTORY: Significant for multiple admissions with a chest pain. Seen in the past by Dr. Mccann and Dr. Dugan as well and suggested a stress test, but the patient never came for the stress test apparently. SOCIAL HISTORY: Denies any smoking, quit many years ago. Denies any history of alcohol abuse. CURRENT MEDICATION: The patient is taking at home; Singulair 10 mg daily, Dexilant and albuterol as well as Xanax. ALLERGIES: ALLERGY TO HYDROCODONE, ALLERGY TO IODINE, ALLERGY TO OXYCODONE, PENICILLIN, SHELL FISH AND SEA FOOD. PREVIOUS CARDIAC WORKUP: As follows; the patient had an echocardiography 02/09/2018, that revealed normal LV function, ejection fraction within normal limits, normal segmental wall motion, no mitral valve regurgitation, [id number] tricuspid regurgitation. REVIEW OF SYSTEMS: As per HPI. PHYSICAL EXAMINATION: GENERAL: Height of the patient 5 feet 5 inches. Weight of the patient 268 pounds. Body mass index 45 kg/m2. VITAL SIGNS: Temperature afebrile. Heart rate 71 and blood pressure 111/73. HEENT: PERRLA. Extraocular muscles intact. NECK: Supple. No carotid bruit or thyromegaly. CHEST: Clear to auscultation. HEART: S1 and S2 regular. ABDOMEN: Soft. EXTREMITIES: Clubbing and cyanosis negative. LABORATORY DATA: Blood workup as follows; WBC 8, hemoglobin 14, hematocrit 42.1, and platelet count 229. Chemistry shows sodium 139, potassium 3.8, chloride 105, carbon dioxide 10, anion gap 12, creatinine 0.8, troponin 0.01 x3 negative. EKG shows normal sinus LVH. Chest pain radiating down on the right side of the chest. Due to the chest pain the patient was brought here. IMPRESSION: A 63-year-old female with past medical history significant for hypertension, borderline, not on medication, but the patient says at home blood pressure was 191/90, but admitting blood pressure and EKG in the emergency room was 154/88 yesterday, today it is 150/80, admitted with the chest pain, very reproducible, very tender. The patient admitted multiple times in the hospital, so far no evidence of acute myocardial infarction, troponin remains negative x3. So no evidence of acute myocardial infection, but given the multiple risk factors of coronary artery disease including obesity and diabetes and hypertension, we will suggest an echo and a stress test. Also the chest pain reproducible, even the chest pain is not improved, so we will consider cardiac catheterization, but since the patient has a reproducible chest pain and troponins are negative and no evidence of acute myocardial infarction, we will do a scheduled stress test and echo. We will get lipid profile, TSH, and hemoglobin A1c. Further recommendations after initial workup. Discussed with the patient we will start low-dose antihypertensive medication including beta-renny and Norvasc. We will follow with you. The patient has a nuclear scan done earlier so we can do the stress test tomorrow. Thank you Dr. Owen for providing us the opportunity in taking care of the patient, Sunshine Le. Darryl Guerrero MD
[2018-10-23] MEDS ORDERED: Bacitracin 500 Units/gm Oint Foilpak UD ONE (20:57)
[2018-10-24] MEDS: Levalbuterol 1.25 MG/3 ML Inhal Soln UD IH SCH ×4 (02:00→21:03)
[2018-10-24 05:59] VITALS: O2SAT 97
[2018-10-24] MEDS ORDERED: Bacitracin 500 Units/gm Oint Foilpak UD TOP SCH (10:00)
[2018-10-24 11:44] VITALS: RESP 18
[2018-10-24] MEDS: levoFLOXacin 500 mg in D5W 500 MG/100 ML BAG IVPB SCH (12:07)
[2018-10-24] MEDS: MethylPREDNISolone 40 mg Vial IV SCH (12:07)
[2018-10-24] MEDS: Pantoprazole 40 mg EC Tab PO SCH (12:08)
[2018-10-24] MEDS: Metoprolol Succinate 25 mg XL Tab PO SCH (12:08)
--- NOTE | 2018-10-24 12:10 | PN ---
DATE: 10/24/2018 REASON FOR CONSULTATION AND FOLLOWUP: Chest pain, cardiac evaluation. SUBJECTIVE: The patient denies any chest pain, shortness of breath, or any palpitations. She is not in apparent distress. Awaiting a stress test today, go forward with the stress test. PHYSICAL EXAMINATION: GENERAL: Not in apparent distress. Sitting in the chair at noninvasive lab awaiting a stress test. Says that she is claustrophobic, may not undergo to the camera. VITAL SIGNS: Temperature is afebrile, heart rate 77, and blood pressure 106/66. HEENT: PERRLA. Extraocular muscles are intact. NECK: Supple. No carotid bruit. No thyromegaly. CHEST: Clear to auscultation. HEART: S1 and S2 regular. ABDOMEN: Soft. EXTREMITIES: Clubbing and cyanosis negative. LABORATORY DATA: WBC 6.4, hemoglobin 14.2, hematocrit 42.1, platelet count 229. Chemistry shows sodium 139, potassium 3.8, chloride 105, carbon dioxide 29, anion gap of 10, BUN 12, and creatinine 0.8. Troponin 0.0 x4 negative. IMPRESSION: A 63-year-old female with past medical history significant for morbid obesity, increased body mass index 45 kg/m2, hypertension, hyperlipidemia, admitted with chest pain, very tender. So far, troponin remains negative x4, scheduled for a stress test today. TSH of the patient is 2.83 and triglyceride 92, total cholesterol 169, LDL 114. Recommended stress test today. The patient had an echocardiography done last night that revealed normal chamber size, ejection fraction 55%, trace mitral regurgitation, trace tricuspid regurgitation, trace aortic regurgitation. Right ventricle systolic pressure 37, [id number] pulmonary regurgitation noted. Further recommendations after the stress test. Emphasis made on the weight reduction, modification of lifestyle, modification of risk factor for coronary artery disease is recommended. We will give 20 K-Dur daily add on to the hydrochlorothiazide and 5 mg of Norvasc and 25 of XL. We will follow with you. Thank you Dr. Owen for providing us an opportunity in taking care of the patient, Sunshine Le. Darryl Guerrero MD [facility] # [id number]
[2018-10-24 17:26] VITALS: BP 111/63; TEMP 98.3
[2018-10-24] MEDS ORDERED: Bacitracin 500 Units/gm Oint Foilpak UD ONE (20:33)
[2018-10-24 21:34] VITALS: PULSE 86
--- NOTE | 2018-10-25 04:43 | DS ---
HISTORY OF PRESENT ILLNESS: The patient is 63 years old, came in because of the chest pain, cough, congestion, pain more on the right side, had D-dimer high. THE PATIENT IS ALLERGIC TO DYE, so we were unable to do any scan. However, she has been on IV steroids and antibiotic, underwent stress test, result not available yet. However, she is feeling better. No nausea, vomiting, or diarrhea. Her cough is better. No chest pain. No shortness of breath. PHYSICAL EXAMINATION: VITAL SIGNS: Today, she is afebrile, pulse 74, respirations 18, and blood pressure 107/63. LUNGS: Bilateral fair airflow. No rhonchi or crackle. HEART: S1 and S2 audible. ABDOMEN: Soft, obese, and nontender. No rebound. No guarding. NEUROLOGIC: The patient is awake, alert, oriented, and communicative. LABORATORY DATA: WBC 6.5, hemoglobin 14, hematocrit 42, and platelet 229. ASSESSMENT: 1. Chest pain, noncardiac, underwent stress test, pending yet. 2. Asthmatic bronchitis. 3. History of asthma. 4. Anxiety disorder. PLAN: The patient is being discharged today. We will discharge her on Levaquin 500 mg daily for five more days and she takes Dexilant at home. She is given prednisone 20 mg twice a day for five days. She will continue her nebulizer treatment. We will follow up the patient in a.m. Tiago Owen MD
[2018-10-25] MEDS ORDERED: Potassium Chloride 20 mEq ER Tab PO SCH (10:00)
== END 2018-10-24 21:34 | disposition home or self-care (01) ==
LOC: ED 16:03 → INTOOBSV 20:19 → ERH 20:19 → 2RSO 22:53
PROVIDERS: ADMIT Internal Medicine; ATTEND Internal Medicine
DX: J45.909 Unspecified asthma, uncomplicated (principal); R07.89 Other chest pain; K21.9 Gastro-esophageal reflux disease without esophagitis; F41.9 Anxiety disorder, unspecified; I10 Essential (primary) hypertension; Z68.42 Body mass index [BMI] 45.0-49.9, adult; E66.01 Morbid (severe) obesity due to excess calories; E78.5 Hyperlipidemia, unspecified; I37.1 Nonrheumatic pulmonary valve insufficiency; K27.9 Peptic ulcer, site unspecified, unspecified as acute or chronic, without hemorrhage or perforation; Z86.73 Personal history of transient ischemic attack (TIA), and cerebral infarction without residual deficits
CPT/HCPCS: 36415; 71046; 80053; 80061; 83036; 83735; 84443; 84484; 85025; 85378; 87804; 93005; 93017; 93306; 94640; 96372; 96374; 96375; 96376; 99285; G0378; J1650; J2920